=== PATIENT | female | born 1970 | race Caucasian/White ===

== ENCOUNTER → 2017-06-08 | Outpatient (CLI) | payer OTHER ==
[2014-04-07 10:58] VITALS: BP 125/66
[~2017-06-08] MED LIST: NO HOME MEDICATIONS
--- NOTE | 2017-06-08 12:28 | KCIC ---
PELVIS W/TV History: Pelvic pressure Comparison: None available at this time Findings: Multiple transabdominal sonographic images of the pelvis are submitted. Pelvic structures are poorly visualized. Transvaginal ultrasound: Multiple transvaginal sonographic images of the pelvis are submitted. There is a small quantity of fluid in the cervical canal. There are nabothian cysts. Uterus measured 10.6 x 5.9 x 5.8 cm. There is a mass of the anterior uterus near the fundus up to 3.4 x 3.3 x 4.2 cm, partially obscures the endometrium. Endometrium is estimated at 0.6 to 0.7 cm in thickness. Right ovary measured 4.1 x 2.1 x 3.9 cm, normal low resistance vascularity. There is a hypoechoic lesion of the right ovary up to 2.2 x 2.3 x 2.3 cm. Left ovary measured 2.7 x 1.5 x 2.7 cm, normal low resistance vascularity. Impression: 1. There is anterior uterine mass near the fundus up to 4.2 cm greatest dimension, more commonly due to a fibroid than more aggressive mass. Mass partially obscures endometrium. 2. There is right ovarian cyst up to 2.3 cm. Electronically signed by: Lucas Mcwilliams MD (06/08/2017 12:25 PM) [facility]-KCIC[facility]
--- NOTE | 2017-06-08 17:54 | RAD ---
DATE: 06/08/2017 EXAM: MAMMO JOSE ANTONIO SCREENING BILATERAL HISTORY: Routine screening COMPARISON: 12/11/2013 The breast parenchyma shows scattered fibroglandular densities. Breast parenchyma level B. FINDINGS: 2-D and 3-D tomosynthesis imaging was performed in CC and MLO projections. No new or enlarging breast densities are seen. No suspicious microcalcifications are evident IMPRESSION: Stable mammograms without evidence of malignancy. BI-RADS CATEGORY: 1 NEGATIVE RECOMMENDED FOLLOW-UP: 12M 12 MONTH FOLLOW-UP PQRS compliance statement: Patient information was entered into a reminder system with a target due date for the next mammogram. Mammography is a sensitive method for finding small breast cancers, but it does not detect them all and is not a substitute for careful clinical examination. A negative mammogram does not negate a clinically suspicious finding and should not result in delay in biopsying a clinically suspicious abnormality. "Our facility is accredited by the [employer] Mammography Program."
== END | disposition home or self-care (01) ==
LOC: KCIC US 08:29
PROVIDERS: ATTEND Nurse Practitioner Family
DX: Z12.31 Encounter for screening mammogram for malignant neoplasm of breast (principal); N83.201 Unspecified ovarian cyst, right side; N88.8 Other specified noninflammatory disorders of cervix uteri
CPT/HCPCS: 76830; 76856; 77063; G0202; 77067

== ENCOUNTER → 2017-06-11 | Outpatient (CLI) | payer OTHER ==
[2014-04-07 10:58] VITALS: BP 125/66
[2017-06-11 08:25] LABS: BASO # 0.1 x10^3/uL (0.0-0.2); BASO % 1 % (0-3); EOS % 4 % (0-3); HEMATOCRIT 42.3 % (36.0-47.0); HEMOGLOBIN 14.6 g/dL (12.0-15.5); LYMPH % 28 % (24-48); MEAN CORPUSCULAR HEMOGLOBIN 30 pg (25-35); MEAN CORPUSCULAR HGB CONC 34 g/dL (31-37); MEAN CORPUSCULAR VOLUME 86 fL (79-100); MONO % 8 % (0-9); NEUT % 59 % (31-73); PLATELET COUNT 220 x10^3/uL (140-400); RED BLOOD COUNT 4.92 x10^6/uL (3.50-5.40); RED CELL DISTRIBUTION WIDTH 14.3 % (11.5-14.5); WHITE BLOOD COUNT 6.9 x10^3/uL (4.0-11.0)
[2017-06-11 08:58] LABS: ALBUMIN 3.5 g/dL (3.4-5.0); CALCIUM 8.7 mg/dL (8.5-10.1); CREATININE 0.9 mg/dL (0.6-1.0); GFR 66.8; POTASSIUM 3.9 mmol/L (3.5-5.1); TOTAL BILIRUBIN 0.4 mg/dL (0.2-1.0); TOTAL PROTEIN 7.1 g/dL (6.4-8.2)
[2017-06-11 09:00] LABS: CHOLESTEROL/HDL RATIO 4.2
== END | disposition home or self-care (01) ==
LOC: LAB 07:55
PROVIDERS: ATTEND Nurse Practitioner Family
DX: Z01.419 Encounter for gynecological examination (general) (routine) without abnormal findings (principal)
CPT/HCPCS: 36415; 80053; 80061; 84436; 84443; 85025

== ENCOUNTER → 2017-06-28 | Outpatient (CLI) | payer OTHER ==
[2014-04-07 10:58] VITALS: BP 125/66
--- NOTE | 2017-06-28 17:05 | KCIC ---
INDICATION: Neck pain. Numbness in thighs and abdomen. Right radiculopathy. Symptoms for 2 months. TECHNIQUE: Sagittal T1, sagittal T2, sagittal STIR, axial T2, and axial T2 gradient sequences are provided. No comparison is available. FINDINGS: There is straightening of cervical lordosis. There is no subluxation. There is no marrow edema or worrisome marrow lesion. There is no cord signal abnormality. The cervicomedullary junction is unremarkable. Degenerative findings by individual level are as follows: C2-C3: There is no canal or foraminal compromise. C3-C4: There is no canal or foraminal compromise. C4-C5: There is no canal or foraminal compromise. C5-C6: There is a minimal disc osteophyte complex without canal or foraminal compromise. C6-C7: There is a mild disc osteophyte complex and minimal uncinate process spurring. There is no canal stenosis or foraminal narrowing. C7-T1: There is no canal or foraminal compromise. IMPRESSION: Mild degenerative disc disease in the cervical spine. This does not result in any high-grade canal or foraminal compromise at any level. Electronically signed by: Aleksandar Mcdonough MD (06/28/2017 5:01 PM) [facility]-KCIC[facility]
== END | disposition home or self-care (01) ==
LOC: KCIC MRI 15:19
PROVIDERS: ATTEND Nurse Practitioner Family
DX: M50.30 Other cervical disc degeneration, unspecified cervical region (principal); R20.0 Anesthesia of skin
CPT/HCPCS: 72141

== ENCOUNTER 2017-09-13 07:34 | Observation (INO) | payer OTHER ==
[~2017-09-13] VITALS: Ht 170.2 cm; Wt 135.2 kg
[2017-09-13] VITALS (7 sets, daily range): BP systolic 126–145; BP diastolic 57–80
[~2017-09-13 07:34] MED LIST changes: +BUPR300T3 PO; +HYDROmorphone 2 MG/ML VIAL IV PRN; +IV RINGERS,LACTATED 1000ML 1,000 ML IV SCH; +LEVO75TA5 PO; +LIDOCAINE 1% PF 2 ML VIAL. ID PRN; +MORPHINE SULFATE 2 MG/ML DISP.SYRIN. IV PRN; +ONDANSETRON PF 4 MG/2 ML VIAL. IV PRN; +PROCHLORPERAZINE 10 MG/2 ML VIAL. IV PRN; +fentaNYL PF VIAL 100 MCG/2 ML VIAL IV PRN
[2017-09-13] MEDS ORDERED: LIDOCAINE 1%/EPI 1:100,000 20 ML VIAL. ONE ×2 (07:41→07:43)
[2017-09-13] MEDS ORDERED: ESTROGENS, CONJ VAGINAL CREAM 30GM TUBE. ONE (07:42)
[2017-09-13] MEDS ORDERED: SURGICEL HEMOSTAT 4X8 EACH. ONE (07:43)
[2017-09-13] MEDS ORDERED: DEXAMETHASONE SOD PHOS 20 MG/5 ML VIAL. ONE (08:42)
[2017-09-13] MEDS ORDERED: PROPOFOL 20 ML IV ONE (08:42)
[2017-09-13] MEDS ORDERED: ONDANSETRON PF 4 MG/2 ML VIAL. ONE (08:42)
[2017-09-13] MEDS ORDERED: LIDOCAINE 2% PF Vial for OR 5 ML VIAL. ONE (08:42)
[2017-09-13] MEDS ORDERED: ROCURONIUM 50 MG/5 ML VIAL. ONE ×2 (08:43→11:04)
[2017-09-13] MEDS ORDERED: MIDAZOLAM HCL/PF 2 MG/2 ML VIAL. ONE (08:43)
[2017-09-13] MEDS ORDERED: fentaNYL PF VIAL 100 MCG/2 ML VIAL ONE (08:43)
[2017-09-13 09:22] LABS: NEG OBC UR NEG; POS OBC UR POS
[2017-09-13 09:33] LABS: BASO % 1 % (0-3); EOS % 3 % (0-3); HEMATOCRIT 43.7 % (36.0-47.0); HEMOGLOBIN 14.2 g/dL (12.0-15.5); LYMPH # 1.5 x10^3/uL (1.0-4.8); LYMPH % 26 % (24-48); MEAN CORPUSCULAR HEMOGLOBIN 28 pg (25-35); MEAN CORPUSCULAR HGB CONC 33 g/dL (31-37); MEAN CORPUSCULAR VOLUME 87 fL (79-100); MONO % 8 % (0-9); NEUT % 63 % (31-73); PLATELET COUNT 226 x10^3/uL (140-400); RED CELL DISTRIBUTION WIDTH 14.5 % (11.5-14.5); WHITE BLOOD COUNT 5.8 x10^3/uL (4.0-11.0)
[2017-09-13] MEDS ORDERED: BUPIVACAINE-EPI 0.25%-1:200000 MPF 30 ML VIAL. INJ ONE (10:05)
[2017-09-13] MEDS ORDERED: DESFLURANE 61 TO 120 MINUTES IH ONE (10:33)
[2017-09-13] MEDS ORDERED: GLYCOPYRROLATE 1 MG/5 ML VIAL. ONE (10:49)
[2017-09-13] MEDS ORDERED: KETOROLAC 30 MG/ML INJ FOR OR. INJ ONE (11:18)
[2017-09-13] MEDS ORDERED: DESFLURANE > 120 MINUTES IH ONE (11:53)
--- NOTE | 2017-09-13 12:04 | PDOC ---
BRIEF OPERATIVE NOTE Date: Sep 13, 2017 Pre-Op Diagnosis 1. AUB 2. Fibroids 3. ROV Cyst 4. Cystocele Post-Op Diagnosis SAme + VERONA Cyst Procedure Performed LAVH, BSO and Anterior Repair Surgeon Dr. Serrano Anesthesia Type: General Blood Loss 550 ml Specimens Obtained uterus, cervix, kb. fallopian tubes and ovaries Findings enlarged, fibroid uterus; kb. ovarian cysts; nml fallopian tubes kb. Complications none Operative Note see dictation ELBA SERRANO Jr, MD Sep 13, 2017 12:04
[2017-09-13] MEDS ORDERED: ZOLPIDEM 5 MG TABLET. PO PRN (12:15)
[2017-09-13] MEDS ORDERED: SIMETHICONE 80 MG TAB.CHEW PO PRN (12:15)
[2017-09-13] MEDS ORDERED: 0.9 % SODIUM CHLORIDE 10 ML DISP.SYRIN. IV PRN (12:15)
[2017-09-13] MEDS ORDERED: diphenhydrAMINE HCL 25 MG CAPSULE PO PRN (12:15)
[2017-09-13] MEDS ORDERED: KETOROLAC 30 MG/ML INJ. IV PRN (12:15)
[2017-09-13] MEDS ORDERED: diphenhydrAMINE 50 MG/ML VIAL IV PRN (12:15)
[2017-09-13] MEDS ORDERED: ONDANSETRON PF 4 MG/2 ML VIAL. IV PRN (12:15)
[2017-09-13] MEDS ORDERED: DEXTROSE 50% 25 GM / 50ML DISP.SYRIN. IV PRN (12:15)
[2017-09-13] MEDS ORDERED: CALCIUM CARBONATE 500 MG TAB.CHEW PO PRN (12:15)
[2017-09-13] MEDS ORDERED: PROCHLORPERAZINE 10 MG/2 ML VIAL. IV PRN (12:15)
[2017-09-13] MEDS: fentaNYL PF VIAL 100 MCG/2 ML VIAL IV PRN ×2 (12:24→12:42)
[2017-09-13] MEDS ORDERED: SCOPOLAMINE 1.5MG PATCH. TD PRN (12:30)
--- NOTE | 2017-09-13 13:16 | OP ---
DATE OF SURGERY: PREOPERATIVE DIAGNOSES: 1. Abnormal uterine bleeding. 2. Fibroids. 3. Right ovarian cyst. 4. Cystocele. POSTOPERATIVE DIAGNOSES: 1. Abnormal uterine bleeding. 2. Fibroids. 3. Right ovarian cyst. 4. Cystocele. 5. Left ovarian cyst. PROCEDURE: 1. LAVH, BSO. 2. Anterior repair. SURGEON: Elba Serrano MD ANESTHESIA: GETA. ESTIMATED BLOOD LOSS: 550 mL. COMPLICATIONS: None. FINDINGS: Enlarged fibroid uterus, bilateral ovarian cysts. Normal fallopian tubes bilaterally. SUMMARY: A 47-year-old female with abnormal uterine bleeding, fibroid uterus. The patient has a history of endometrial ablation, persistent right ovarian cyst. The patient was counseled on LAVH-RSO, possible LSO as well as anterior repair, risks, benefits and expectations and voiced a clear understanding to proceed. DESCRIPTION OF PROCEDURE: The patient was taken to the surgery suite and placed in dorsal lithotomy position. She was prepped with Betadine solution for vaginal prep and ChloraPrep for abdominal prep. After adequate anesthesia, bivalve speculum was placed vaginally. Anterior lip of the cervix grasped with a single tooth tenaculum. The Infusionsoft uterine manipulator was then placed. The bivalve speculum was removed. Attention was now placed on abdomen. Small transverse skin incision was made just below the umbilicus with a scalpel. The Veress needle was then placed through the infraumbilical incision site. The abdomen was allowed to insufflate up to 1-1/2 liters CO2 gas. The Veress needle was then removed. A 5 mm trocar was placed. Scope was positioned. The uterus appeared enlarged with multiple fibroids. Bilateral ovaries were visualized and both had cysts up to 3.5 cm size. Fallopian tubes appeared normal bilaterally. Two additional incisions made in the left lower quadrant with a scalpel in which 5 mm trocars were placed with aid of graspers and EnSeal device. The right round ligament was coagulated and dissected. The right infundibulopelvic ligament was coagulated and dissected. The right broad ligament was coagulated and dissected down to the uterine artery. Same process took place with the left adnexa. Due to some adhesions of the lower uterine segment to the bladder area, we were unable to create a bladder flap laparoscopically. We then proceeded vaginally. Weighted speculum and curved Mikal placed vaginally, the single tooth tenaculum and Valtchev uterine manipulator were removed. The double tooth tenaculum placed on the anterior-and posterior lip of the cervix. 1% lidocaine with epinephrine was injected circumferentially. Bovie cautery was utilized to circumscribe the cervix. The vaginal mucosa was dissected away from the lower uterine segment using blunt dissection with a moist Ray-Yuval. The parametrial tissue was clamped bilaterally, cut and suture ligated with 2-0 Vicryl suture. We then entered the posterior cul-de-sac with sharp dissection with curved Ivan scissors. The uterosacral ligaments were clamped bilaterally, cut and suture ligated. Cardinal ligaments were clamped bilaterally, cut and suture ligated. We then entered the anterior cul-de-sac bluntly. Two additional pedicles were taken just adjacent to the uterus bilaterally, cut and suture ligated with 2-0 Vicryl sutures. The uterus was then retroverted. There was a peritoneal adhesion that was clamped, cut and suture ligated. The cervix, uterus, bilateral fallopian tubes and ovaries were then removed in their entirety. A modified Avila culdoplasty was performed incorporating the uterosacral ligaments bilaterally using 0 Vicryl suture. The remainder of the vaginal cuff was reapproximated using 2-0 Vicryl suture in a [id number] manner. I then proceeded with anterior repair, in which an Allis clamp was placed 2 cm below the urethral orifice on the anterior vaginal wall mucosa. A second Allis clamp was placed 3 cm below the first Allis clamp at the midline of the anterior vaginal mucosa. 1% lidocaine with epinephrine was injected between the 2 Allis clamps. Scalpel was utilized to make an incision between the 2 Allis clamps. The vaginal mucosa was dissected away from the pubovesical fascia using sharp dissection with Metzenbaum scissors. The pubovesical fascia was reapproximated using 2-0 Vicryl suture in an interrupted fashion. The excess anterior vaginal wall mucosa was excised using Metzenbaum scissors. The remaining anterior vaginal wall mucosa was reapproximated using 2-0 Vicryl suture in a [id number] manner. A Premarin soaked vaginal packing was then placed. Attention was once again placed on abdomen. The abdomen was allowed to insufflate up to 1-1/2 liters of CO2 gas. The scope was positioned. The posterior cul-de-sac was irrigated of clot and debris. The pedicles were all hemostatic. A small amount of normal saline was left in posterior cul-de-sac. The trocars were then removed under direct visualization. The abdomen was allowed to deflate as much as possible along with mechanical manipulation. The three skin incisions were reapproximated using 4-0 Vicryl suture in subcuticular manner. 0.25% Marcaine with epinephrine was injected at each incision site. The patient tolerated the procedure well and was taken to recovery room in stable condition. Sponge and needle count correct x 3. ELBA SERRANO MD DR: KEVIN/doug JOB#: [id number] / [id number]
[2017-09-13] MEDS ORDERED: RACEPINEPHRINE 2.25% 0.5 ML NEBU. NEB PRN (13:30)
[2017-09-13] MEDS ORDERED: MIDAZOLAM HCL/PF 2 MG/2 ML VIAL. IV PRN (13:30)
[2017-09-13] MEDS: GABAPENTIN 300 MG CAPSULE. PO SCH ×2 (14:00→22:00)
[2017-09-13] MEDS ORDERED: PHENOL ORAL SPRAY 177ML BOTTLE. PO PRN (19:30)
[2017-09-13] MEDS: oxyCODONE/APAP 5/325 1 TAB TABLET PO PRN (20:10)
[2017-09-13] MEDS ORDERED: DOCUSATE SODIUM 100 MG CAPSULE. PO PRN (21:45)
[2017-09-14] MEDS: oxyCODONE/APAP 5/325 1 TAB TABLET PO PRN ×3 (00:10→06:22)
[2017-09-14 03:39] VITALS: BP 123/54
[2017-09-14] MEDS: GABAPENTIN 300 MG CAPSULE. PO SCH (04:41)
[2017-09-14 05:14] VITALS: BP 124/58
[2017-09-14 05:50] LABS: BASO % 0 % (0-3); EOS % 0 % (0-3); HEMATOCRIT 33.6 % (36.0-47.0); HEMOGLOBIN 11.2 g/dL (12.0-15.5); LYMPH # 1.1 x10^3/uL (1.0-4.8); LYMPH % 9 % (24-48); MEAN CORPUSCULAR HEMOGLOBIN 29 pg (25-35); MEAN CORPUSCULAR HGB CONC 33 g/dL (31-37); MEAN CORPUSCULAR VOLUME 88 fL (79-100); MONO % 7 % (0-9); NEUT % 84 % (31-73); PLATELET COUNT 214 x10^3/uL (140-400); RED BLOOD COUNT 3.84 x10^6/uL (3.50-5.40); RED CELL DISTRIBUTION WIDTH 14.5 % (11.5-14.5); WHITE BLOOD COUNT 12.5 x10^3/uL (4.0-11.0)
[2017-09-14 07:00] VITALS: BP 105/54
[2017-09-14 11:00] VITALS: BP 105/51
--- NOTE | 2017-09-14 11:51 | PDOC ---
SURGICAL PROGRESS NOTE Subjective Pt. feeling better. She is tolerating regular diet, ambulating in hallways and voiding without difficulty. Vital Signs Vital Signs Date Time Temp Pulse Resp B/P (MAP) Pulse Ox O2 Delivery O2 Flow Rate FiO2 09/14/17 07:46 Room Air 09/14/17 07:00 97.9 83 20 105/54 (71) 98 97.9 09/14/17 01:10 2.0 I&O Intake and Output 09/14/17 07:00 Intake Total 3640 ml Output Total 3730 ml Balance -90 ml Intake Oral 1090 ml IV Total 2550 ml Output Urine Total 3180 ml Estimated Blood Loss 550 ml PATIENT HAS A VELASQUEZ: No General: Alert, Oriented X3, Cooperative HEENT: Atraumatic Lungs: Clear to auscultation Heart: Regular rate Abdomen: Normal bowel sounds, Soft, No masses Psych/Mental Status: Mental status NL Labs Laboratory Tests Test 09/13/17 08:15 09/13/17 17:13 09/14/17 04:50 White Blood Count 5.8 x10^3/uL (4.0-11.0) 12.5 x10^3/uL (4.0-11.0) Red Blood Count 5.00 x10^6/uL (3.50-5.40) 3.84 x10^6/uL (3.50-5.40) Hemoglobin 14.2 g/dL (12.0-15.5) 12.6 g/dL (12.0-15.5) 11.2 g/dL (12.0-15.5) Hematocrit 43.7 % (36.0-47.0) 37.6 % (36.0-47.0) 33.6 % (36.0-47.0) Mean Corpuscular Volume 87 fL (79-100) 88 fL (79-100) Mean Corpuscular Hemoglobin 28 pg (25-35) 29 pg (25-35) Mean Corpuscular Hemoglobin Concent 33 g/dL (31-37) 33 g/dL (31-37) Red Cell Distribution Width 14.5 % (11.5-14.5) 14.5 % (11.5-14.5) Platelet Count 226 x10^3/uL (140-400) 214 x10^3/uL (140-400) Neutrophils (%) (Auto) 63 % (31-73) 84 % (31-73) Lymphocytes (%) (Auto) 26 % (24-48) 9 % (24-48) Monocytes (%) (Auto) 8 % (0-9) 7 % (0-9) Eosinophils (%) (Auto) 3 % (0-3) 0 % (0-3) Basophils (%) (Auto) 1 % (0-3) 0 % (0-3) Neutrophils # (Auto) 3.6 x10^3uL (1.8-7.7) 10.5 x10^3uL (1.8-7.7) Lymphocytes # (Auto) 1.5 x10^3/uL (1.0-4.8) 1.1 x10^3/uL (1.0-4.8) Monocytes # (Auto) 0.5 x10^3/uL (0.0-1.1) 0.9 x10^3/uL (0.0-1.1) Eosinophils # (Auto) 0.2 x10^3/uL (0.0-0.7) 0.0 x10^3/uL (0.0-0.7) Basophils # (Auto) 0.0 x10^3/uL (0.0-0.2) 0.0 x10^3/uL (0.0-0.2) Urine Test Negative (NEG) Laboratory Tests Test 09/13/17 17:13 09/14/17 04:50 Hemoglobin 12.6 g/dL (12.0-15.5) 11.2 g/dL (12.0-15.5) Hematocrit 37.6 % (36.0-47.0) 33.6 % (36.0-47.0) White Blood Count 12.5 x10^3/uL (4.0-11.0) Red Blood Count 3.84 x10^6/uL (3.50-5.40) Mean Corpuscular Volume 88 fL (79-100) Mean Corpuscular Hemoglobin 29 pg (25-35) Mean Corpuscular Hemoglobin Concent 33 g/dL (31-37) Red Cell Distribution Width 14.5 % (11.5-14.5) Platelet Count 214 x10^3/uL (140-400) Neutrophils (%) (Auto) 84 % (31-73) Lymphocytes (%) (Auto) 9 % (24-48) Monocytes (%) (Auto) 7 % (0-9) Eosinophils (%) (Auto) 0 % (0-3) Basophils (%) (Auto) 0 % (0-3) Neutrophils # (Auto) 10.5 x10^3uL (1.8-7.7) Lymphocytes # (Auto) 1.1 x10^3/uL (1.0-4.8) Monocytes # (Auto) 0.9 x10^3/uL (0.0-1.1) Eosinophils # (Auto) 0.0 x10^3/uL (0.0-0.7) Basophils # (Auto) 0.0 x10^3/uL (0.0-0.2) Assessment/Plan POD#1 s/p LAVH, BSO and Anterior Repair P: d/c home. Problems: ELBA DONALD Jr, MD Sep 14, 2017 11:51
--- NOTE | 2017-09-14 11:52 | DISCH ---
DISCHARGE INSTRUCTIONS Condition on Discharge Condition on Discharge: Stable Activity After Discharge Activity Instructions for Disc: Activity as tolerated Lifting Instructions after Dis: No heavy lifting Driving Instructions after Dis: Do not drive today Diet after Discharge Diet Texture: Regular Contacting the DRTabitha after DC Call your doctor for: Concerns you may have Follow-Up Follow up with: Dr. Serrano in 3 weeks. ELBA SERRANO Jr, MD Sep 14, 2017 11:52
[2017-09-14] MEDS ORDERED: DOCU-109 PO (11:53)
[2017-09-14] MEDS ORDERED: OXYC-323 PO (11:53)
[2017-09-14] MEDS ORDERED: IBUP-1060 PO (11:53)
--- NOTE | 2017-09-17 09:47 | PATHOLOGY ---
PATHOLOGY REPORT * * * * * * * * FINAL DIAGNOSIS: Uterus and attached bilateral fallopian tubes and ovaries, laparoscopic assisted vaginal hysterectomy with bilateral salpingo-oophorectomy: - Leiomyomas (4), uterine corpus, the largest measuring 2.6 cm in greatest dimension (uterine weight 133 grams). - Mild chronic cervicitis. - Nabothian cysts, cervix. - Slightly disordered proliferative endometrium. - Congestion of bilateral fallopian tubes. - Partially luteinized follicular cyst of left ovary. - Small serous inclusion cysts of bilateral ovaries. COMMENT: There is no evidence of malignancy. (JPM:rltri; 09/14/2017) REPORT ELECTRONICALLY SIGNED BY: Jaylen Ceballos M.D. DATE/TIME: 09/17/2017 09:47 * * * * * * * * GROSS PATHOLOGY: Received in formalin labeled "Claude Vizcaino, uterus, cervix, bilateral ovaries and tubes" is a hysterectomy specimen with attached fallopian tubes and ovaries. The uterus weighs 133 g and measures 10.1 cm from fundus to cervix, 6.1 cm from cornu to cornu, and 5.0 cm from anterior to posterior. The serosa is pink-laureano and smooth with multiple minute roughened adhesions on the anterior surface measuring from 0.1-0.2 cm in greatest dimension, and covering a 1.0 x 0.5 cm area. The cervical os is slitlike and measures 1.9 cm. The ectocervix is pink-laureano and slightly ragged (possible surgical artifact). The cervix is probe patent and the uterus is opened to reveal a 4.0 x 1.0 cm endometrial cavity and a 3.0 x 0.9 cm endocervical canal. The average endometrial thickness measures 0.1 cm and the average myometrial thickness measures 2.1 cm. Four leiomyomata are identified within the myometrium ranging from 0.7-2.6 cm in greatest dimension. No hemorrhage or necrosis is identified. The attached fimbriated fallopian tubes are pink laureano and smooth, and serially sectioned to reveal a pinpoint lumen. The right fallopian tube measures 7.6 cm in length and 0.6 cm in diameter. The left fallopian tube measures 5.2 cm in length and 0.6 cm in diameter. The right ovary weighs 6 g and measures 3.5 x 2.2 x 1.5 cm. The external surface is laureano-white and smooth and the ovary is serially sectioned to reveal multiple corpora lutea ranging from 0.3-0.5 cm in greatest dimension. The left ovary weighs 11 g and measures 3.5 x 3.0 x 2.2 cm. The external surface is laureano-white and cerebriform, and the ovary is sectioned to reveal a thin walled simple cyst measuring 2.2 x 2.2 x 2.0 cm. No papillary excrescences are identified. Action Finisher sections of the specimen are submitted as follows: A1 12:00 cervix A2 6:00 cervix A3 full-thickness anterior endomyometrium A4 full-thickness posterior endomyometrium A5 assistance representative right fallopian tube A6 assistance representative left fallopian tube A7 assistance representative right ovary A8 assistance representative left ovary including cyst wall A9 assistance representative leiomyomata [place] [place]13[place] INITIAL CPT CODE(S): A; 07871 Professional services performed [place] [facility] [place] [address] Technical services performed by [facility] at [address] [place] [address], [facility] [address], [place] [address]. SPECIMEN(S) RECEIVED: A.Uterus, cervix, bilateral tubes and ovaries CLINICAL HISTORY: Fibroids, abnormal uterine bleeding, cystocele, right ovarian cyst PATIENT: CLAUDE VIZCAINO Sam /AGE: 806/09/1970 (Age: 47) PATIENT #: [id number] ALT CASE #: SPECIMEN COLLECTION DATE: 09/13/2017 SPECIMEN RECEIVED DATE: 09/13/2017 [facility] - [address] [place] [address] - PHONE: [phone] * * * END OF REPORT * * *
== END 2017-09-14 14:01 | disposition home or self-care (01) ==
LOC: SURG 07:34 → 3 NORTH 12:04 → 2 SOUTH 18:36
PROVIDERS: ADMIT Obstetrics & Gynecology; ATTEND Obstetrics & Gynecology
DX: N93.9 Abnormal uterine and vaginal bleeding, unspecified (principal); D25.9 Leiomyoma of uterus, unspecified; N83.201 Unspecified ovarian cyst, right side; N83.202 Unspecified ovarian cyst, left side; N81.10 Cystocele, unspecified; K66.0 Peritoneal adhesions (postprocedural) (postinfection)
CPT/HCPCS: 36415; 57240; 58552; 81025; 85014; 85018; 85025; 86850; 86900; 86901; 86920; 94640; 96374; 96375; G0378; G0379; J0690; J0780; J1100; J1885; J2060; J2250; J2405; J2704; J3010; J3490; A4215; J7030; J7120; J2001

== ENCOUNTER 2017-09-28 11:46 | Inpatient (IN) | payer OTHER ==
[~2017-09-28] VITALS: Ht 170.2 cm; Wt 127.9 kg
[~2017-09-28 11:46] MED LIST changes: +DOCU-109 PO; -HYDROmorphone 2 MG/ML VIAL IV PRN; +IBUP-1060 PO; -IV RINGERS,LACTATED 1000ML 1,000 ML IV SCH; -LIDOCAINE 1% PF 2 ML VIAL. ID PRN; -MORPHINE SULFATE 2 MG/ML DISP.SYRIN. IV PRN; -ONDANSETRON PF 4 MG/2 ML VIAL. IV PRN; +OXYC-323 PO; -PROCHLORPERAZINE 10 MG/2 ML VIAL. IV PRN; -fentaNYL PF VIAL 100 MCG/2 ML VIAL IV PRN
[2017-09-28] MEDS ORDERED: IV NORMAL SALINE 1000ML BAG 1,000 ML IV SCH (12:36)
[2017-09-28] MEDS ORDERED: CONTRAST GIVEN MC PRN (13:00)
[2017-09-28] MEDS ORDERED: IOHEXOL 300 MG/ML 100ML VIAL. IV ONE (13:00)
--- NOTE | 2017-09-28 13:05 | PHYS DOC ---
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 She had hysterectomy 2 weeks ago. She's been trying to hold off on taking her narcotic pain medicines. She's been having a sensation of her "insides ripping out" when she has BM, she has pain with bowel movements which is in the middle pelvic and upper epigastric area. She was advised by her family doctor to come in the emergency department last Sunday however thought she would try and treat it at home but it has not been working. She's been taking Colace MiraLAX and Motrin. She takes one Percocet in the morning and 1 at night trying to limit those. She' s also been having some irritation with urination and a burning sensation. Not had any fevers. She has not follow-up postop status post laparoscopic hysterectomy. Review of Systems Review of Systems Constitutional: Denies fever or chills Eyes: Denies change in visual acuity, redness, or eye pain HENT: Denies nasal congestion or sore throat Respiratory: Denies cough or shortness of breath Cardiovascular: No additional information not addressed in HPI GI: HPI : HPI Musculoskeletal: Denies back pain or joint pain Integument: Denies rash or skin lesions Neurologic: Denies headache, focal weakness or sensory changes Endocrine: Denies polyuria or polydipsia All other systems were reviewed and found to be within normal limits, except as documented in this note. Current Medications Current Medications Current Medications Medications (Trade) Dose Ordered Sig/Neel Start Time Stop Time Status Last Admin Dose Admin Info (Do NOT chart on this entry -- for MONITORING) 1 each PRN DAILY PRN 09/28/17 13:00 09/30/17 12:59 Iohexol (Omnipaque 300 Mg/ml) 75 ml 1X ONCE 09/28/17 13:00 09/28/17 13:01 DC 09/28/17 13:46 75 ML Ketorolac Tromethamine (Toradol) 30 mg 1X ONCE 09/28/17 15:15 09/28/17 15:16 DC 09/28/17 15:23 30 MG Piperacillin Sod/ Tazobactam Sod (Zosyn) 4.5 gm 1X ONCE 09/28/17 15:15 09/28/17 15:16 DC 09/28/17 15:52 4.5 GM Piperacillin Sod/ Tazobactam Sod 4.5 gm/Dextrose 100 ml @ 200 mls/hr 1X ONCE 09/28/17 15:15 09/28/17 15:15 DC Sodium Chloride 1,000 ml @ 1,000 mls/hr Q1H 09/28/17 12:36 09/28/17 13:35 DC 09/28/17 12:36 1,000 MLS/HR Allergies Allergies Allergies Coded Allergies Type Severity Reaction Last Updated Verified No Known Drug Allergies 09/13/17 No Physical Exam Physical Exam Constitutional: Well developed, well nourished, no acute distress, non-toxic appearance. Looks younger than stated age. HENT: Normocephalic, atraumatic, bilateral external ears normal, oropharynx moist, no oral exudates, nose normal. Eyes: PERRLA, EOMI, conjunctiva normal, no discharge. Neck: Normal range of motion. Cardiovascular:Heart rate regular rhythm, no murmur Lungs & Thorax: Bilateral breath sounds clear to auscultation Abdomen: Bowel sounds normal, soft, , no masses. Skin: Warm, dry, no erythema, no rash. Back: No tenderness, no CVA tenderness. Extremities: No tenderness, no cyanosis, no clubbing, ROM intact, no edema. Neurologic: Alert and oriented X 3, normal motor function, normal sensory function, no focal deficits noted. Psychologic: Affect normal, judgement normal, mood normal. Current Patient Data Vital Signs Vital Signs Date Time Temp Pulse Resp B/P (MAP) Pulse Ox O2 Delivery O2 Flow Rate FiO2 09/28/17 15:53 79 18 136/60 (85) 100 Room Air 09/28/17 12:20 98.5 98.5 Lab Values Laboratory Tests Test 09/28/17 13:21 09/28/17 13:25 Urine Collection Type Unknown Urine Color Yellow Urine Clarity Clear Urine pH 6.0 Urine Specific [place] 1.010 Urine Protein Negative mg/dL (NEG-TRACE) Urine Glucose (UA) Negative mg/dL (NEG) Urine Ketones (Stick) Negative mg/dL (NEG) Urine Blood Negative (NEG) Urine Nitrite Negative (NEG) Urine Bilirubin Negative (NEG) Urine Urobilinogen Dipstick 0.2 mg/dL (0.2 mg/dL) Urine Leukocyte Esterase Trace (NEG) Urine RBC 1-2 /HPF (0-2) Urine WBC 5-10 /HPF (0-4) Urine Squamous Epithelial Cells Few /LPF Urine Bacteria Few /HPF (0-FEW) Urine Mucus Slight /LPF White Blood Count 8.9 x10^3/uL (4.0-11.0) Red Blood Count 4.28 x10^6/uL (3.50-5.40) Hemoglobin 12.2 g/dL (12.0-15.5) Hematocrit 37.2 % (36.0-47.0) Mean Corpuscular Volume 87 fL (79-100) Mean Corpuscular Hemoglobin 29 pg (25-35) Mean Corpuscular Hemoglobin Concent 33 g/dL (31-37) Red Cell Distribution Width 14.2 % (11.5-14.5) Platelet Count 276 x10^3/uL (140-400) Neutrophils (%) (Auto) 76 % (31-73) H Lymphocytes (%) (Auto) 14 % (24-48) L Monocytes (%) (Auto) 7 % (0-9) Eosinophils (%) (Auto) 2 % (0-3) Basophils (%) (Auto) 1 % (0-3) Neutrophils # (Auto) 6.8 x10^3uL (1.8-7.7) Lymphocytes # (Auto) 1.3 x10^3/uL (1.0-4.8) Monocytes # (Auto) 0.6 x10^3/uL (0.0-1.1) Eosinophils # (Auto) 0.1 x10^3/uL (0.0-0.7) Basophils # (Auto) 0.1 x10^3/uL (0.0-0.2) Sodium Level 138 mmol/L (136-145) Potassium Level 4.5 mmol/L (3.5-5.1) Chloride Level 102 mmol/L (98-107) Carbon Dioxide Level 28 mmol/L (21-32) Anion Gap 8 (6-14) Blood Urea Nitrogen 12 mg/dL (7-20) Creatinine 1.0 mg/dL (0.6-1.0) Estimated GFR (Cockcroft-Gault) 59.2 BUN/Creatinine Ratio 12 (6-20) Glucose Level 100 mg/dL (70-99) H Calcium Level 9.0 mg/dL (8.5-10.1) Total Bilirubin 0.4 mg/dL (0.2-1.0) Aspartate Amino Transferase (AST) 15 U/L (15-37) Alanine Aminotransferase (ALT) 22 U/L (14-59) Alkaline Phosphatase 109 U/L (46-116) Total Protein 7.3 g/dL (6.4-8.2) Albumin 3.4 g/dL (3.4-5.0) Albumin/Globulin Ratio 0.9 (1.0-1.7) L Lipase 64 U/L (73-393) L Laboratory Tests 09/28/17 13:25 Laboratory Tests 09/28/17 13:25 EKG EKG [] Radiology/Procedures Radiology/Procedures []REASON: post op pain PROCEDURE: CT ABD PELV W/ IV CONTRST ONLY CT of the abdomen and pelvis with contrast, 09/28/2017: History: Post hysterectomy pain Multidetector CT imaging was performed following an IV bolus injection of iodinated contrast material. No oral contrast material was administered for this study. No hepatic abnormality is seen. The gallbladder is unremarkable. The pancreas shows no abnormality. The spleen is of normal size. The kidneys are unremarkable. The renal collecting systems and ureters are not dilated. The abdominal aorta is unremarkable. No abdominal or pelvic adenopathy is seen. The uterus is surgically absent. There is a small collection of fluid and gas in the pelvis at the midline in the region of the vaginal cuff. This demonstrates a slightly irregular medium density wall. It measures approximately 2.9 cm in greatest diameter. This abuts the posterior bladder wall, which appears to be mildly thickened. This process cannot be clearly from the left lateral wall of the rectosigmoid colon. Just inferior to this collection of fluid and gas there are additional gas collections which presumably lie within the vagina. The bowel loops are not dilated. The appendix is visualized and shows no abnormality. No free air or significant volume of free fluid is evident in the abdomen or pelvis. IMPRESSION: Small postoperative collection of gas and fluid at the level of the vaginal cuff raising the possibility of abscess. PQRS Compliance Statement: One or more of the following individualized dose reduction techniques were utilized for this examination: 1. Automated exposure control 2. Adjustment of the mA and/or kV according to patient size 3. Use of iterative reconstruction technique DICTATED and SIGNED BY: CARMEN ALTMAN MD DATE: 09/28/17 1431 CC: SANDRA NOLASCO MD; ARLEN SUTTON MD ~ Course & Med Decision Making Course & Med Decision Making Pertinent Labs and Imaging studies reviewed. (See chart for details) CT with possible small abcess versus infection. D/W Dr. Altman interventional radiology -- not large enough to consider IR drainage at this point. Logan dose with antibiotics and admit. . Will notify the hot stone setter for Dr. Pérez. Dr. Pérez is out to Dr. Ambrosio who will admit. Dx: post op infection; admittd in stable condition. Dragon Disclaimer Dragon Disclaimer This electronic medical record was generated, in whole or in part, using a voice recognition dictation system. Departure Departure Referrals: SANDRA NOLASCO MD (PCP) ARLEN SUTTON MD Sep 28, 2017 13:05
[2017-09-28 13:46] LABS: BILIRUBIN,URINE NEGATIVE (NEG); GLUCOSE,URINE NEGATIVE (NEG); NITRITE,URINE NEGATIVE (NEG); PROTEIN,URINE NEGATIVE (NEG-TRACE); UROBILINOGEN,URINE 0.2 mg/dL (0.2 mg/dL)
[2017-09-28 13:47] LABS: BASO # 0.1 x10^3/uL (0.0-0.2); BASO % 1 % (0-3); EOS % 2 % (0-3); HEMATOCRIT 37.2 % (36.0-47.0); HEMOGLOBIN 12.2 g/dL (12.0-15.5); LYMPH # 1.3 x10^3/uL (1.0-4.8); LYMPH % 14 % (24-48); MEAN CORPUSCULAR HEMOGLOBIN 29 pg (25-35); MEAN CORPUSCULAR HGB CONC 33 g/dL (31-37); MEAN CORPUSCULAR VOLUME 87 fL (79-100); MONO % 7 % (0-9); NEUT % 76 % (31-73); PLATELET COUNT 276 x10^3/uL (140-400); RED BLOOD COUNT 4.28 x10^6/uL (3.50-5.40); RED CELL DISTRIBUTION WIDTH 14.2 % (11.5-14.5); WHITE BLOOD COUNT 8.9 x10^3/uL (4.0-11.0)
[2017-09-28 13:59] LABS: BACTERIA,URINE FEW /HPF (0-FEW); SQUAMOUS EPITHELIAL CELL,UR FEW /LPF
[2017-09-28 13:59] LABS: GFR 59.2; POTASSIUM 4.5 mmol/L (3.5-5.1)
[2017-09-28 14:20] LABS: ALBUMIN 3.4 g/dL (3.4-5.0); ALBUMIN/GLOBULIN RATIO 0.9 (1.0-1.7); TOTAL BILIRUBIN 0.4 mg/dL (0.2-1.0); TOTAL PROTEIN 7.3 g/dL (6.4-8.2)
--- NOTE | 2017-09-28 14:52 | RAD ---
CT of the abdomen and pelvis with contrast, 09/28/2017: History: Post hysterectomy pain Multidetector CT imaging was performed following an IV bolus injection of iodinated contrast material. No oral contrast material was administered for this study. No hepatic abnormality is seen. The gallbladder is unremarkable. The pancreas shows no abnormality. The spleen is of normal size. The kidneys are unremarkable. The renal collecting systems and ureters are not dilated. The abdominal aorta is unremarkable. No abdominal or pelvic adenopathy is seen. The uterus is surgically absent. There is a small collection of fluid and gas in the pelvis at the midline in the region of the vaginal cuff. This demonstrates a slightly irregular medium density wall. It measures approximately 2.9 cm in greatest diameter. This abuts the posterior bladder wall, which appears to be mildly thickened. This process cannot be clearly from the left lateral wall of the rectosigmoid colon. Just inferior to this collection of fluid and gas there are additional gas collections which presumably lie within the vagina. The bowel loops are not dilated. The appendix is visualized and shows no abnormality. No free air or significant volume of free fluid is evident in the abdomen or pelvis. IMPRESSION: Small postoperative collection of gas and fluid at the level of the vaginal cuff raising the possibility of abscess. PQRS Compliance Statement: One or more of the following individualized dose reduction techniques were utilized for this examination: 1. Automated exposure control 2. Adjustment of the mA and/or kV according to patient size 3. Use of iterative reconstruction technique
[2017-09-28] MEDS ORDERED: PIPERACILLIN/TAZO IV Push 4.5 GM VIAL. IVP ONE (15:15)
[2017-09-28] MEDS ORDERED: KETOROLAC 30 MG/ML INJ. IV ONE (15:15)
[2017-09-28] MEDS ORDERED: PIPERACILLIN/TAZOBACTAM 4.5 GM in IV DEXTROSE 5% 100 ML IV ONE (15:15)
[2017-09-28 17:30] VITALS: BP 132/71
[2017-09-28] MEDS ORDERED: MORPHINE SULFATE 2 MG/ML DISP.SYRIN. IV PRN (17:45)
[2017-09-28] MEDS ORDERED: oxyCODONE/APAP 5/325 1 TAB TABLET PO PRN ×2 (17:45)
[2017-09-28] MEDS ORDERED: 0.9 % SODIUM CHLORIDE 10 ML DISP.SYRIN. IV PRN (17:45)
[2017-09-28] MEDS ORDERED: ceFAZolin SODIUM 1 GM in IV DEXTROSE 5% 50 ML IV SCH (17:45)
[2017-09-28] MEDS ORDERED: MAG HYDROX/ALUMINUM HYD/SIMETH 30 ML ORAL.SUSP PO PRN (17:45)
[2017-09-28] MEDS ORDERED: ONDANSETRON PF 4 MG/2 ML VIAL. IV PRN (17:45)
[2017-09-28] MEDS ORDERED: METOCLOPRAMIDE HCL 10 MG/2 ML VIAL. IV PRN (17:45)
[2017-09-28 18:00] VITALS: BP 136/86
[2017-09-28] MEDS: KETOROLAC 30 MG/ML INJ. IV SCH (18:00)
[2017-09-28] MEDS ORDERED: ZOLPIDEM 5 MG TABLET. PO PRN (18:30)
[2017-09-28 19:15] VITALS: BP 128/82
[2017-09-28] MEDS ORDERED: diphenhydrAMINE 50 MG/ML VIAL ONE ×2 (20:00→20:14)
[2017-09-28 20:20] VITALS: BP 159/92
[2017-09-28] MEDS: diphenhydrAMINE HCL 25 MG CAPSULE PO PRN (20:30)
[2017-09-28] MEDS ORDERED: diphenhydrAMINE 50 MG/ML VIAL IM ONE (20:45)
[2017-09-28] MEDS ORDERED: FAMOTIDINE 20 MG/2 ML VIAL IVP ONE (21:15)
[2017-09-28] MEDS ORDERED: methylPREDNISolone SOD SUCC PF 125 MG/2 ML VIAL. IV ONE (21:15)
[2017-09-28] MEDS ORDERED: diazePAM 5 MG TABLET PO ONE ×2 (21:15→21:30)
[2017-09-28] MEDS ORDERED: LEVOTHYROXINE 88 MCG TABLET PO ONE (21:15)
[2017-09-28] MEDS: PIPERACILLIN/TAZO IV Push 4.5 GM VIAL. IVP SCH (22:00)
[2017-09-29] MEDS ORDERED: PIPERACILLIN/TAZOBACTAM 4.5 GM in IV DEXTROSE 5% 100 ML IV SCH ×2
[2017-09-29 05:00] VITALS: BP 117/67
[2017-09-29 05:25] LABS: BASO % 0 % (0-3); EOS % 0 % (0-3); HEMOGLOBIN 12.5 g/dL (12.0-15.5); LYMPH # 0.6 x10^3/uL (1.0-4.8); LYMPH % 7 % (24-48); MEAN CORPUSCULAR HEMOGLOBIN 29 pg (25-35); MEAN CORPUSCULAR HGB CONC 33 g/dL (31-37); MEAN CORPUSCULAR VOLUME 87 fL (79-100); MONO % 1 % (0-9); NEUT % 91 % (31-73); PLATELET COUNT 271 x10^3/uL (140-400); RED BLOOD COUNT 4.37 x10^6/uL (3.50-5.40); RED CELL DISTRIBUTION WIDTH 14.1 % (11.5-14.5); WHITE BLOOD COUNT 8.4 x10^3/uL (4.0-11.0)
[2017-09-29] MEDS: KETOROLAC 30 MG/ML INJ. IV SCH ×4 (06:00→18:00)
[2017-09-29] MEDS: PIPERACILLIN/TAZO IV Push 4.5 GM VIAL. IVP SCH (06:00)
[2017-09-29 06:48] LABS: ALBUMIN 3.2 g/dL (3.4-5.0); ALBUMIN/GLOBULIN RATIO 0.8 (1.0-1.7); CALCIUM 8.6 mg/dL (8.5-10.1); GFR 59.2; POTASSIUM 4.1 mmol/L (3.5-5.1); TOTAL BILIRUBIN 0.2 mg/dL (0.2-1.0); TOTAL PROTEIN 7.4 g/dL (6.4-8.2)
[2017-09-29] MEDS: LINACLOTIDE 145 MCG CAPSULE. PO SCH (07:00)
[2017-09-29 08:30] LABS: OVALOCYTES FEW; PLT ESTIMATE ADEQUATE (ADEQUATE); POLYCHROMASIA SLIGHT
[2017-09-29] MEDS: diazePAM 5 MG TABLET PO PRN ×3 (09:15→20:54)
[2017-09-29] MEDS ORDERED: diazePAM 5 MG TABLET PO ONE (09:15)
[2017-09-29] MEDS: diphenhydrAMINE HCL 25 MG CAPSULE PO PRN ×4 (10:17→18:26)
[2017-09-29 10:28] VITALS: BP 123/72
[2017-09-29 11:30] VITALS: BP_SYST 88
[2017-09-29 13:34] LABS: FREE T4 1.09 ng/dL (0.76-1.46)
[2017-09-29 14:24] VITALS: BP 123/64
--- NOTE | 2017-09-29 14:31 | PDOC2 ---
CONSULT Date of Consult Date of Consult DATE: 09/29/17 TIME: 14:17 Reason for Consult Reason for Consult: Palpitations Referring Physician Referring Physician: Dr. Ambrosio Identification/Chief Complaint Chief Complaint Palpitations Problems: History of Present Illness Reason for Visit: This patient is a pleasant 47-year-old lady that has a known history of thyroid disease. About 2 weeks ago she had a hysterectomy and bladder surgery. The patient has been having problems with defecation since then and is on multiple laxatives. She has also been having episodes of palpitations since she received some antibiotics. She states that she can feel her heart racing and that she feels very short of breath and feels like she cannot get air in and like a tightness in her neck and that she can't swallow when this happens her has checked her pulse with some of these episodes and states that it was at least 140. The patient denies any loss of consciousness feels that it's very uncomfortable especially the situation where she feels that she cannot breathe and because there is something obstructing in the neck. At the time that I saw the patient she was feeling better but was quite anxious. Past Medical History Psych: Anxiety Endocrine: Hypothyroidism Current Problem List Problem List Problems Medical Problems: (1) Post op infection Status: Acute Current Medications Current Medications Current Medications Sodium Chloride 1,000 ml @ 1,000 mls/hr Q1H IV Last administered on 12:36; Start 09/28/17 at 12:36; Stop 09/28/17 at 13:35; Status DC Iohexol (Omnipaque 300 Mg/ml) 75 ml 1X ONCE IV Last administered on 13:46; Start 09/28/17 at 13:00; Stop 09/29/17 at 10:37; Status DC Info (Do NOT chart on this entry -- for MONITORING) 1 each PRN DAILY PRN MC SEE COMMENTS; Start 09/28/17 at 13:00; Stop 09/29/17 at 10:37; Status DC Piperacillin Sod/ Tazobactam Sod 4.5 gm/Dextrose 100 ml @ 200 mls/hr 1X ONCE IV ; Start 09/28/17 at 15:15; Stop 09/28/17 at 15:15; Status DC Ketorolac Tromethamine (Toradol) 30 mg 1X ONCE IV Last administered on 15:23; Start 09/28/17 at 15:15; Stop 09/29/17 at 10:37; Status DC Piperacillin Sod/ Tazobactam Sod (Zosyn) 4.5 gm 1X ONCE IVP Last administered on 09/28/17 15:52; Start 09/28/17 at 15:15; Stop 09/29/17 at 10:37; Status DC Al Hydroxide/Mg Hydroxide (Mylanta Plus Xs) 30 ml PRN Q3HRS PRN PO HEARTBURN / GAS; Start 09/28/17 at 17:45 Diphenhydramine HCl (Benadryl) 25 mg PRN Q6HRS PRN PO ITCHING Last administered on 09/29/17 10:50; Start 09/28/17 at 17:45 Sodium Chloride (Normal Saline Flush) 3 ml QSHIFT PRN IV AFTER MEDS AND BLOOD DRAWS; Start 09/28/17 at 17:45 Oxycodone/ Acetaminophen (Percocet 5/325) 1 tab PRN Q4HRS PRN PO MILD PAIN, 1ST CHOICE Last administered on 09/28/17 19:23; Start 09/28/17 at 17:45 Oxycodone/ Acetaminophen (Percocet 5/325) 2 tab PRN Q4HRS PRN PO MODERATE PAIN , SEVERE PAIN; Start 09/28/17 at 17:45 Morphine Sulfate 2 mg PRN Q1HR PRN IV PAIN; Start 09/28/17 at 17:45 Ondansetron HCl (Zofran) 4 mg PRN Q6HRS PRN IV NAUESA, 1ST CHOICE; Start 09/28 at 17:45 Metoclopramide HCl (Reglan Vial) 10 mg PRN Q6HRS PRN IV Nausea/Vomiting, 1st Choice; Start 09/28/17 at 17:45 Cefazolin Sodium 1 gm/Dextrose 50 ml @ 100 mls/hr Q6H IV ; Start 09/28/17 at 17:45; Stop 09/29/17 at 06:14; Status UNV Ketorolac Tromethamine (Toradol) 30 mg Q6HRS IV ; Start 09/28/17 at 18:00; Stop 10/03/17 at 17:59 Linaclotide (Linzess) 145 mcg DAILY07 PO ; Start 09/29/17 at 07:00 Zolpidem Tartrate (Ambien) 5 mg PRN QHS PRN PO INSOMNIA; Start 09/28/17 at 18: 30 Diphenhydramine HCl (Benadryl) 50 mg STK-MED ONCE .ROUTE ; Start 09/28/17 at 20 :14; Stop 09/28/17 at 20:15; Status DC Diphenhydramine HCl (Benadryl) 50 mg 1X ONCE IM ; Start 09/28/17 at 20:45; Stop 09/29/17 at 10:37; Status DC Piperacillin Sod/ Tazobactam Sod 4.5 gm/Dextrose 100 ml @ 200 mls/hr Q6HRS IV ; Start 09/29/17 at 00:00; Status UNV Piperacillin Sod/ Tazobactam Sod (Zosyn) 4.5 gm Q6HRS IVP ; Start 09/28/17 at 22:00; Stop 09/29/17 at 10:37; Status DC Methylprednisolone Sodium Succinate (SOLU-Medrol 125MG VIAL) 125 mg 1X ONCE IV Last administered on 09/28/17 21:32; Start 09/28/17 at 21:15; Stop at 10:37; Status DC Famotidine (Pepcid Vial) 20 mg 1X ONCE IVP Last administered on 09/28/17 21: 32; Start 09/28/17 at 21:15; Stop 09/28/17 at 21:16; Status DC Levothyroxine Sodium (Synthroid) 88 mcg 1X ONCE PO Last administered on 10:50; Start 09/28/17 at 21:15; Stop 09/28/17 at 21:16; Status DC Diazepam (Valium) 5 mg 1X ONCE PO Last administered on 09/28/17 21:30; Start 09/28/17 at 21:15; Stop 09/29/17 at 10:37; Status DC Diazepam (Valium) 10 mg 1X ONCE PO Last administered on 09/28/17 22:37; Start 09/28/17 at 21:30; Stop 09/29/17 at 10:37; Status DC Diazepam (Valium) 10 mg 1X ONCE PO Last administered on 09/29/17 09:10; Start 09/29/17 at 09:15; Stop 09/29/17 at 10:37; Status DC Diazepam (Valium) 10 mg PRN Q6HRS PRN PO ANXIETY Last administered on t 09:15; Start 09/29/17 at 10:00 Active Scripts Active Percocet 5-325 Mg Tablet (Oxycodone/Acetaminophen) 1 Each Tablet 1 Tab PO PRN Q6HRS PRN Ibuprofen 800 Mg Tablet 800 Mg PO PRN Q6HRS PRN Colace (Docusate Sodium) 100 Mg Capsule 100 Mg PO BID Reported Levothyroxine Sodium 75 Mcg Tablet 75 Mcg PO DAILYAC Wellbutrin Xl (Bupropion Hcl) 300 Mg Tab.er.24h 300 Mg PO DAILY Allergies Allergies: Coded Allergies: No Known Drug Allergies (Unverified , 09/13/17) Physical Exam General: Alert, Oriented X3, Cooperative HEENT: Atraumatic, PERRLA, Other (oral mucosa is dry. The thyroid is palpable and perhaps slightly enlarged no nodes were felt) Lungs: Clear to auscultation Heart: Regular rate, Normal S1, Normal S2, No murmurs Abdomen: Normal bowel sounds Neuro: Other (grossly intact) Psych/Mental Status: Other (very anxious) Vitals VITALS Vital Signs Date Time Temp Pulse Resp B/P (MAP) Pulse Ox O2 Delivery O2 Flow Rate FiO2 09/29/17 11:30 88/ 99 Room Air 09/29/17 10:28 98.0 92 98.0 09/29/17 09:45 22 Labs Labs Laboratory Tests Test 09/28/17 13:21 09/28/17 13:25 09/28/17 20:28 09/29/17 05:10 Urine Collection Type Unknown Urine Color Yellow Urine Clarity Clear Urine pH 6.0 Urine Specific [place] 1.010 Urine Protein Negative mg/dL (NEG-TRACE) Urine Glucose (UA) Negative mg/dL (NEG) Urine Ketones (Stick) Negative mg/dL (NEG) Urine Blood Negative (NEG) Urine Nitrite Negative (NEG) Urine Bilirubin Negative (NEG) Urine Urobilinogen Dipstick 0.2 mg/dL (0.2 mg/dL) Urine Leukocyte Esterase Trace (NEG) Urine RBC 1-2 /HPF (0-2) Urine WBC 5-10 /HPF (0-4) Urine Squamous Epithelial Cells Few /LPF Urine Bacteria Few /HPF (0-FEW) Urine Mucus Slight /LPF White Blood Count 8.9 x10^3/uL (4.0-11.0) 8.4 x10^3/uL (4.0-11.0) Red Blood Count 4.28 x10^6/uL (3.50-5.40) 4.37 x10^6/uL (3.50-5.40) Hemoglobin 12.2 g/dL (12.0-15.5) 12.5 g/dL (12.0-15.5) Hematocrit 37.2 % (36.0-47.0) 38.0 % (36.0-47.0) Mean Corpuscular Volume 87 fL (79-100) 87 fL (79-100) Mean Corpuscular Hemoglobin 29 pg (25-35) 29 pg (25-35) Mean Corpuscular Hemoglobin Concent 33 g/dL (31-37) 33 g/dL (31-37) Red Cell Distribution Width 14.2 % (11.5-14.5) 14.1 % (11.5-14.5) Platelet Count 276 x10^3/uL (140-400) 271 x10^3/uL (140-400) Neutrophils (%) (Auto) 76 % (31-73) 91 % (31-73) Lymphocytes (%) (Auto) 14 % (24-48) 7 % (24-48) Monocytes (%) (Auto) 7 % (0-9) 1 % (0-9) Eosinophils (%) (Auto) 2 % (0-3) 0 % (0-3) Basophils (%) (Auto) 1 % (0-3) 0 % (0-3) Neutrophils # (Auto) 6.8 x10^3uL (1.8-7.7) 7.7 x10^3uL (1.8-7.7) Lymphocytes # (Auto) 1.3 x10^3/uL (1.0-4.8) 0.6 x10^3/uL (1.0-4.8) Monocytes # (Auto) 0.6 x10^3/uL (0.0-1.1) 0.1 x10^3/uL (0.0-1.1) Eosinophils # (Auto) 0.1 x10^3/uL (0.0-0.7) 0.0 x10^3/uL (0.0-0.7) Basophils # (Auto) 0.1 x10^3/uL (0.0-0.2) 0.0 x10^3/uL (0.0-0.2) Sodium Level 138 mmol/L (136-145) 140 mmol/L (136-145) Potassium Level 4.5 mmol/L (3.5-5.1) 4.1 mmol/L (3.5-5.1) Chloride Level 102 mmol/L (98-107) 105 mmol/L (98-107) Carbon Dioxide Level 28 mmol/L (21-32) 22 mmol/L (21-32) Anion Gap 8 (6-14) 13 (6-14) Blood Urea Nitrogen 12 mg/dL (7-20) 14 mg/dL (7-20) Creatinine 1.0 mg/dL (0.6-1.0) 1.0 mg/dL (0.6-1.0) Estimated GFR (Cockcroft-Gault) 59.2 59.2 BUN/Creatinine Ratio 12 (6-20) 14 (6-20) Glucose Level 100 mg/dL (70-99) 172 mg/dL (70-99) Calcium Level 9.0 mg/dL (8.5-10.1) 8.6 mg/dL (8.5-10.1) Total Bilirubin 0.4 mg/dL (0.2-1.0) 0.2 mg/dL (0.2-1.0) Aspartate Amino Transf (AST/SGOT) 15 U/L (15-37) 14 U/L (15-37) Alanine Aminotransferase (ALT/SGPT) 22 U/L (14-59) 20 U/L (14-59) Alkaline Phosphatase 109 U/L (46-116) 109 U/L (46-116) Total Protein 7.3 g/dL (6.4-8.2) 7.4 g/dL (6.4-8.2) Albumin 3.4 g/dL (3.4-5.0) 3.2 g/dL (3.4-5.0) Albumin/Globulin Ratio 0.9 (1.0-1.7) 0.8 (1.0-1.7) Lipase 64 U/L (73-393) Glucose (Fingerstick) 112 mg/dL (70-99) Segmented Neutrophils % 89 % (35-66) Band Neutrophils % 5 % (0-9) Lymphocytes % 6 % (24-48) Platelet Estimate Adequate (ADEQUATE) Polychromasia Slight Ovalocytes Few Thyroid Stimulating Hormone (TSH) 0.636 uIU/mL (0.358-3.74) Test 09/29/17 06:00 Free Thyroxine 1.09 ng/dL (0.76-1.46) Free Triiodothyronine (T3) pg/mL 1.92 pg/mL (2.18-3.98) Laboratory Tests Test 09/28/17 20:28 09/29/17 05:10 09/29/17 06:00 Glucose (Fingerstick) 112 mg/dL (70-99) White Blood Count 8.4 x10^3/uL (4.0-11.0) Red Blood Count 4.37 x10^6/uL (3.50-5.40) Hemoglobin 12.5 g/dL (12.0-15.5) Hematocrit 38.0 % (36.0-47.0) Mean Corpuscular Volume 87 fL (79-100) Mean Corpuscular Hemoglobin 29 pg (25-35) Mean Corpuscular Hemoglobin Concent 33 g/dL (31-37) Red Cell Distribution Width 14.1 % (11.5-14.5) Platelet Count 271 x10^3/uL (140-400) Neutrophils (%) (Auto) 91 % (31-73) Lymphocytes (%) (Auto) 7 % (24-48) Monocytes (%) (Auto) 1 % (0-9) Eosinophils (%) (Auto) 0 % (0-3) Basophils (%) (Auto) 0 % (0-3) Neutrophils # (Auto) 7.7 x10^3uL (1.8-7.7) Lymphocytes # (Auto) 0.6 x10^3/uL (1.0-4.8) Monocytes # (Auto) 0.1 x10^3/uL (0.0-1.1) Eosinophils # (Auto) 0.0 x10^3/uL (0.0-0.7) Basophils # (Auto) 0.0 x10^3/uL (0.0-0.2) Segmented Neutrophils % 89 % (35-66) Band Neutrophils % 5 % (0-9) Lymphocytes % 6 % (24-48) Platelet Estimate Adequate (ADEQUATE) Polychromasia Slight Ovalocytes Few Sodium Level 140 mmol/L (136-145) Potassium Level 4.1 mmol/L (3.5-5.1) Chloride Level 105 mmol/L (98-107) Carbon Dioxide Level 22 mmol/L (21-32) Anion Gap 13 (6-14) Blood Urea Nitrogen 14 mg/dL (7-20) Creatinine 1.0 mg/dL (0.6-1.0) Estimated GFR (Cockcroft-Gault) 59.2 BUN/Creatinine Ratio 14 (6-20) Glucose Level 172 mg/dL (70-99) Calcium Level 8.6 mg/dL (8.5-10.1) Total Bilirubin 0.2 mg/dL (0.2-1.0) Aspartate Amino Transf (AST/SGOT) 14 U/L (15-37) Alanine Aminotransferase (ALT/SGPT) 20 U/L (14-59) Alkaline Phosphatase 109 U/L (46-116) Total Protein 7.4 g/dL (6.4-8.2) Albumin 3.2 g/dL (3.4-5.0) Albumin/Globulin Ratio 0.8 (1.0-1.7) Thyroid Stimulating Hormone (TSH) 0.636 uIU/mL (0.358-3.74) Free Thyroxine 1.09 ng/dL (0.76-1.46) Free Triiodothyronine (T3) pg/mL 1.92 pg/mL (2.18-3.98) Assessment/Plan Assessment/Plan This patient is having episodes of palpitations. She had surgery 2 weeks ago and has been having multiple episodes. She is concerned with the possibility of having had a reaction to the antibiotics. From a cardiac standpoint she has no history but there is a family history of mitral valve prolapse therefore I would like to get an echocardiogram. In addition to that because of her history of thyroid problems I would like to get a full thyroid panel as well as a sedimentation rate and an BELEN. I would like to transfer her to telemetry to be able to monitor her heart rhythm and catch any episodes of tachycardia. I have discussed this with the patient and her family. Thank you very much for asking me to participate in the care of this patient. VICKIE DENNY MD Sep 29, 2017 14:31
[2017-09-29 18:12] LABS: FSH 82.9 mIU/mL (.); LUTEINIZING HORMONE 38.9 mIU/mL (.)
[2017-09-29 19:35] VITALS: BP 151/75
--- NOTE | 2017-09-29 23:42 | PDOC ---
Provider Note Provider Note Pt refused exam secondary to being anxious VSS plan exam later today KOKI CRUZ MD Sep 29, 2017 23:42
[2017-09-29 23:44] VITALS: BP 109/50
[2017-09-30] MEDS: KETOROLAC 30 MG/ML INJ. IV SCH ×5 (06:00→21:50)
[2017-09-30 07:00] VITALS: BP 104/70
[2017-09-30] MEDS ORDERED: diphenhydrAMINE HCL 25 MG CAPSULE PO ONE (09:00)
[2017-09-30] MEDS: LINACLOTIDE 145 MCG CAPSULE. PO SCH (09:15)
--- NOTE | 2017-09-30 10:11 | RAD ---
Thyroid ultrasound 09/29/2017 Clinical indication: Thyroid ultrasound 04/09/2006. Findings: Right lobe of the thyroid measures 4.5 x 1.5 x 1.8 cm. No discrete nodule identified. Left lobe thyroid measures 3.6 x 1.5 x 1.5 cm with no discrete nodule identified. AP isthmus measurement 0.5 cm. Impression: Unremarkable thyroid evaluation.
[2017-09-30 11:00] VITALS: BP 136/75
[2017-09-30] MEDS: diazePAM 5 MG TABLET PO PRN ×2 (11:11→19:31)
--- NOTE | 2017-09-30 14:46 | PDOC ---
SURGICAL PROGRESS NOTE Subjective S/P [facility] BSO currently being evaluated for atypical allergic Rxn and anxiety Cuff mass most likely old blood possible abscess Unable to cooperate with exam [place] to see tomorrow Vital Signs Vital Signs Date Time Temp Pulse Resp B/P (MAP) Pulse Ox O2 Delivery O2 Flow Rate FiO2 09/30/17 11:00 98.8 73 20 136/75 (95) 97 Room Air 98.8 I&O Intake and Output 09/30/17 07:00 Intake Total 320 ml Balance 320 ml Intake Oral 320 ml # Voids 3 Labs Laboratory Tests Test 09/28/17 20:28 09/29/17 05:10 09/29/17 06:00 09/29/17 14:06 Glucose (Fingerstick) 112 mg/dL (70-99) White Blood Count 8.4 x10^3/uL (4.0-11.0) Red Blood Count 4.37 x10^6/uL (3.50-5.40) Hemoglobin 12.5 g/dL (12.0-15.5) Hematocrit 38.0 % (36.0-47.0) Mean Corpuscular Volume 87 fL (79-100) Mean Corpuscular Hemoglobin 29 pg (25-35) Mean Corpuscular Hemoglobin Concent 33 g/dL (31-37) Red Cell Distribution Width 14.1 % (11.5-14.5) Platelet Count 271 x10^3/uL (140-400) Neutrophils (%) (Auto) 91 % (31-73) Lymphocytes (%) (Auto) 7 % (24-48) Monocytes (%) (Auto) 1 % (0-9) Eosinophils (%) (Auto) 0 % (0-3) Basophils (%) (Auto) 0 % (0-3) Neutrophils # (Auto) 7.7 x10^3uL (1.8-7.7) Lymphocytes # (Auto) 0.6 x10^3/uL (1.0-4.8) Monocytes # (Auto) 0.1 x10^3/uL (0.0-1.1) Eosinophils # (Auto) 0.0 x10^3/uL (0.0-0.7) Basophils # (Auto) 0.0 x10^3/uL (0.0-0.2) Segmented Neutrophils % 89 % (35-66) Band Neutrophils % 5 % (0-9) Lymphocytes % 6 % (24-48) Platelet Estimate Adequate (ADEQUATE) Polychromasia Slight Ovalocytes Few Sodium Level 140 mmol/L (136-145) Potassium Level 4.1 mmol/L (3.5-5.1) Chloride Level 105 mmol/L (98-107) Carbon Dioxide Level 22 mmol/L (21-32) Anion Gap 13 (6-14) Blood Urea Nitrogen 14 mg/dL (7-20) Creatinine 1.0 mg/dL (0.6-1.0) Estimated GFR (Cockcroft-Gault) 59.2 BUN/Creatinine Ratio 14 (6-20) Glucose Level 172 mg/dL (70-99) Calcium Level 8.6 mg/dL (8.5-10.1) Total Bilirubin 0.2 mg/dL (0.2-1.0) Aspartate Amino Transf (AST/SGOT) 14 U/L (15-37) Alanine Aminotransferase (ALT/SGPT) 20 U/L (14-59) Alkaline Phosphatase 109 U/L (46-116) Total Protein 7.4 g/dL (6.4-8.2) Albumin 3.2 g/dL (3.4-5.0) Albumin/Globulin Ratio 0.8 (1.0-1.7) Thyroid Stimulating Hormone (TSH) 0.636 uIU/mL (0.358-3.74) Follicle Stimulating Hormone 82.9 mIU/mL (.) Luteinizing Hormone 38.9 mIU/mL (.) Free Thyroxine 1.09 ng/dL (0.76-1.46) Free Triiodothyronine (T3) pg/mL 1.92 pg/mL (2.18-3.98) Erythrocyte Sedimentation Rate 48 (0-25) Problem List Problems Medical Problems: (1) Post op infection Status: Acute Assessment/Plan Continue current Tx Problems: OKKI CRUZ MD Sep 30, 2017 14:46
[2017-09-30 15:00] VITALS: BP 136/69
[2017-09-30] MEDS: predniSONE 20 MG TABLET PO SCH ×2 (15:29→20:47)
[2017-09-30] MEDS: buPROPion XL 150 MG TAB.ER.24H. PO SCH (15:29)
--- NOTE | 2017-09-30 15:57 | PDOC ---
PROGRESS NOTES Subjective Subjective Patient continued to have issues with palpitations and feeling extremely anxious. Presently in sinus rhythm Objective Objective Vital Signs Date Time Temp Pulse Resp B/P (MAP) Pulse Ox O2 Delivery O2 Flow Rate FiO2 09/30/17 15:00 98.8 90 20 136/69 (91) 98 Room Air 98.8 Intake and Output 09/30/17 07:00 Intake Total 320 ml Balance 320 ml Intake Oral 320 ml # Voids 3 Physical Exam Physical Exam No significant changes in cardiac exam Assessment Assessment We had a lengthy discussion with regards to her situation and causes for problems, this may be secondary to an anxiety disorder, depression, post hysterectomy depression, hormonal imbalance, panic attacks. Since she had been started and received already some steroids at this point checking the adrenal function would not be accurate I would like to go ahead and start her on a tapering course of prednisone, she had been on Wellbutrin but has not received it for a few days therefore I'm going to resume it at her previous dose of 300 mg a day. We will get an echocardiogram in the morning and I would also like to get a noncontrast CT of the head. The patient was in agreement with this approach. Problems Medical Problems: (1) Post op infection Status: Acute Comment Review of Relevant I have reviewed the following items sera (where applicable) has been applied. Labs Laboratory Tests Test 09/28/17 20:28 09/29/17 05:10 09/29/17 06:00 09/29/17 14:06 Glucose (Fingerstick) 112 mg/dL (70-99) White Blood Count 8.4 x10^3/uL (4.0-11.0) Red Blood Count 4.37 x10^6/uL (3.50-5.40) Hemoglobin 12.5 g/dL (12.0-15.5) Hematocrit 38.0 % (36.0-47.0) Mean Corpuscular Volume 87 fL (79-100) Mean Corpuscular Hemoglobin 29 pg (25-35) Mean Corpuscular Hemoglobin Concent 33 g/dL (31-37) Red Cell Distribution Width 14.1 % (11.5-14.5) Platelet Count 271 x10^3/uL (140-400) Neutrophils (%) (Auto) 91 % (31-73) Lymphocytes (%) (Auto) 7 % (24-48) Monocytes (%) (Auto) 1 % (0-9) Eosinophils (%) (Auto) 0 % (0-3) Basophils (%) (Auto) 0 % (0-3) Neutrophils # (Auto) 7.7 x10^3uL (1.8-7.7) Lymphocytes # (Auto) 0.6 x10^3/uL (1.0-4.8) Monocytes # (Auto) 0.1 x10^3/uL (0.0-1.1) Eosinophils # (Auto) 0.0 x10^3/uL (0.0-0.7) Basophils # (Auto) 0.0 x10^3/uL (0.0-0.2) Segmented Neutrophils % 89 % (35-66) Band Neutrophils % 5 % (0-9) Lymphocytes % 6 % (24-48) Platelet Estimate Adequate (ADEQUATE) Polychromasia Slight Ovalocytes Few Sodium Level 140 mmol/L (136-145) Potassium Level 4.1 mmol/L (3.5-5.1) Chloride Level 105 mmol/L (98-107) Carbon Dioxide Level 22 mmol/L (21-32) Anion Gap 13 (6-14) Blood Urea Nitrogen 14 mg/dL (7-20) Creatinine 1.0 mg/dL (0.6-1.0) Estimated GFR (Cockcroft-Gault) 59.2 BUN/Creatinine Ratio 14 (6-20) Glucose Level 172 mg/dL (70-99) Calcium Level 8.6 mg/dL (8.5-10.1) Total Bilirubin 0.2 mg/dL (0.2-1.0) Aspartate Amino Transf (AST/SGOT) 14 U/L (15-37) Alanine Aminotransferase (ALT/SGPT) 20 U/L (14-59) Alkaline Phosphatase 109 U/L (46-116) Total Protein 7.4 g/dL (6.4-8.2) Albumin 3.2 g/dL (3.4-5.0) Albumin/Globulin Ratio 0.8 (1.0-1.7) Thyroid Stimulating Hormone (TSH) 0.636 uIU/mL (0.358-3.74) Follicle Stimulating Hormone 82.9 mIU/mL (.) Luteinizing Hormone 38.9 mIU/mL (.) Free Thyroxine 1.09 ng/dL (0.76-1.46) Free Triiodothyronine (T3) pg/mL 1.92 pg/mL (2.18-3.98) Erythrocyte Sedimentation Rate 48 (0-25) Medications Current Medications Sodium Chloride 1,000 ml @ 1,000 mls/hr Q1H IV Last administered on 12:36; Start 09/28/17 at 12:36; Stop 09/28/17 at 13:35; Status DC Iohexol (Omnipaque 300 Mg/ml) 75 ml 1X ONCE IV Last administered on 13:46; Start 09/28/17 at 13:00; Stop 09/29/17 at 10:37; Status DC Info (Do NOT chart on this entry -- for MONITORING) 1 each PRN DAILY PRN MC SEE COMMENTS; Start 09/28/17 at 13:00; Stop 09/29/17 at 10:37; Status DC Piperacillin Sod/ Tazobactam Sod 4.5 gm/Dextrose 100 ml @ 200 mls/hr 1X ONCE IV ; Start 09/28/17 at 15:15; Stop 09/28/17 at 15:15; Status DC Ketorolac Tromethamine (Toradol) 30 mg 1X ONCE IV Last administered on 15:23; Start 09/28/17 at 15:15; Stop 09/29/17 at 10:37; Status DC Piperacillin Sod/ Tazobactam Sod (Zosyn) 4.5 gm 1X ONCE IVP Last administered on 09/28/17 15:52; Start 09/28/17 at 15:15; Stop 09/29/17 at 10:37; Status DC Al Hydroxide/Mg Hydroxide (Mylanta Plus Xs) 30 ml PRN Q3HRS PRN PO HEARTBURN / GAS; Start 09/28/17 at 17:45 Diphenhydramine HCl (Benadryl) 25 mg PRN Q6HRS PRN PO ITCHING Last administered on 09/29/17 18:26; Start 09/28/17 at 17:45 Sodium Chloride (Normal Saline Flush) 3 ml QSHIFT PRN IV AFTER MEDS AND BLOOD DRAWS; Start 09/28/17 at 17:45 Oxycodone/ Acetaminophen (Percocet 5/325) 1 tab PRN Q4HRS PRN PO MILD PAIN, 1ST CHOICE Last administered on 09/28/17t 19:23; Start 09/28/17 at 17:45 Oxycodone/ Acetaminophen (Percocet 5/325) 2 tab PRN Q4HRS PRN PO MODERATE PAIN , SEVERE PAIN; Start 09/28/17 at 17:45 Morphine Sulfate 2 mg PRN Q1HR PRN IV PAIN; Start 09/28/17 at 17:45 Ondansetron HCl (Zofran) 4 mg PRN Q6HRS PRN IV NAUESA, 1ST CHOICE; Start 09/28 at 17:45 Metoclopramide HCl (Reglan Vial) 10 mg PRN Q6HRS PRN IV Nausea/Vomiting, 1st Choice; Start 09/28/17 at 17:45 Cefazolin Sodium 1 gm/Dextrose 50 ml @ 100 mls/hr Q6H IV ; Start 09/28/17 at 17:45; Stop 09/29/17 at 06:14; Status UNV Ketorolac Tromethamine (Toradol) 30 mg Q6HRS IV ; Start 09/28/17 at 18:00; Stop 10/03/17 at 17:59 Linaclotide (Linzess) 145 mcg DAILY07 PO Last administered on 09/30/17t 09:15 ; Start 09/29/17 at 07:00 Zolpidem Tartrate (Ambien) 5 mg PRN QHS PRN PO INSOMNIA; Start 09/28/17 at 18: 30 Diphenhydramine HCl (Benadryl) 50 mg STK-MED ONCE .ROUTE ; Start 09/28/17 at 20 :14; Stop 09/28/17 at 20:15; Status DC Diphenhydramine HCl (Benadryl) 50 mg 1X ONCE IM ; Start 09/28/17 at 20:45; Stop 09/29/17 at 10:37; Status DC Piperacillin Sod/ Tazobactam Sod 4.5 gm/Dextrose 100 ml @ 200 mls/hr Q6HRS IV ; Start 09/29/17 at 00:00; Status UNV Piperacillin Sod/ Tazobactam Sod (Zosyn) 4.5 gm Q6HRS IVP ; Start 09/28/17 at 22:00; Stop 09/29/17 at 10:37; Status DC Methylprednisolone Sodium Succinate (SOLU-Medrol 125MG VIAL) 125 mg 1X ONCE IV Last administered on 09/28/17 21:32; Start 09/28/17 at 21:15; Stop at 10:37; Status DC Famotidine (Pepcid Vial) 20 mg 1X ONCE IVP Last administered on 09/28/17 21: 32; Start 09/28/17 at 21:15; Stop 09/28/17 at 21:16; Status DC Levothyroxine Sodium (Synthroid) 88 mcg 1X ONCE PO Last administered on 10:50; Start 09/28/17 at 21:15; Stop 09/28/17 at 21:16; Status DC Diazepam (Valium) 5 mg 1X ONCE PO Last administered on 09/28/17 21:30; Start 09/28/17 at 21:15; Stop 09/29/17 at 10:37; Status DC Diazepam (Valium) 10 mg 1X ONCE PO Last administered on 09/28/17 22:37; Start 09/28/17 at 21:30; Stop 09/29/17 at 10:37; Status DC Diazepam (Valium) 10 mg 1X ONCE PO Last administered on 09/29/17 09:10; Start 09/29/17 at 09:15; Stop 09/29/17 at 10:37; Status DC Diazepam (Valium) 10 mg PRN Q6HRS PRN PO ANXIETY Last administered on 11:11; Start 09/29/17 at 10:00 Diphenhydramine HCl (Benadryl) 50 mg 1X ONCE PO Last administered on 09:16; Start 09/30/17 at 09:00; Stop 09/30/17 at 09:01; Status DC Bupropion HCl (Wellbutrin Xl) 300 mg DAILY PO Last administered on 09/30/17 15:29; Start 09/30/17 at 15:00 Prednisone (Prednisone) 20 mg BID PO Last administered on 09/30/17 15:29; Start 09/30/17 at 15:00 Active Scripts Active Percocet 5-325 Mg Tablet (Oxycodone/Acetaminophen) 1 Each Tablet 1 Tab PO PRN Q6HRS PRN Ibuprofen 800 Mg Tablet 800 Mg PO PRN Q6HRS PRN Colace (Docusate Sodium) 100 Mg Capsule 100 Mg PO BID Reported Levothyroxine Sodium 75 Mcg Tablet 75 Mcg PO DAILYAC Wellbutrin Xl (Bupropion Hcl) 300 Mg Tab.er.24h 300 Mg PO DAILY Vitals/I & O Vital Sign - Last 24 Hours 09/29/17 09/29/17 09/29/17 09/30/17 19:32 19:35 23:44 03:54 Temp 98.6 98.7 98.6 98.7 Pulse 98 88 72 Resp 17 18 B/P (MAP) 151/75 (100) 109/50 (69) Pulse Ox 99 97 O2 Delivery Room Air Room Air Room Air Room Air 09/30/17 09/30/17 09/30/17 09/30/17 07:00 08:00 11:00 15:00 Temp 98.8 98.8 98.8 98.8 98.8 98.8 Pulse 85 73 90 Resp 20 20 20 B/P (MAP) 104/70 (81) 136/75 (95) 136/69 (91) Pulse Ox 98 97 98 O2 Delivery Room Air Room Air Room Air Room Air Intake and Output 09/29/17 09/29/17 09/30/17 15:00 23:00 07:00 Intake Total 320 ml Balance 320 ml VICKIE DENNY MD Sep 30, 2017 15:57
[2017-09-30] MEDS: IBUPROFEN 800 MG TABLET. PO PRN (17:52)
[2017-09-30] MEDS: diphenhydrAMINE HCL 25 MG CAPSULE PO PRN (19:39)
[2017-09-30 23:55] VITALS: BP 118/50
[2017-10-01 03:55] VITALS: BP 121/49
[2017-10-01] MEDS: KETOROLAC 30 MG/ML INJ. IV SCH ×4 (06:00→21:44)
[2017-10-01] MEDS: LINACLOTIDE 145 MCG CAPSULE. PO SCH (06:32)
[2017-10-01 07:00] VITALS: BP 127/78
[2017-10-01] MEDS: predniSONE 20 MG TABLET PO SCH ×2 (08:36→21:40)
[2017-10-01] MEDS: buPROPion XL 150 MG TAB.ER.24H. PO SCH (08:37)
[2017-10-01] MEDS: diazePAM 5 MG TABLET PO PRN (08:37)
--- NOTE | 2017-10-01 08:55 | PDOC1 ---
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 [] Eyes: Denies change in visual acuity. [] HEENT: Denies nasal congestion or sore throat. [] Respiratory: Denies cough or shortness of breath. [] Cardiovascular: Denies chest pain or edema. [] GI: Denies abdominal pain, nausea, vomiting, bloody stools or diarrhea. [] : Denies dysuria, frequency, or hematuria. [] Female : Denies vaginal bleeding, discharge, or pelvic pain. [] Musculoskeletal: Denies back pain or joint pain. [] Integument: Denies rash. [] Neurologic: Denies headache, focal weakness or sensory changes. [] Endocrine: Denies polyuria or polydipsia. [] Lymphatic: Denies swollen glands. [] Psychiatric: Denies depression or anxiety. [] Family History Family History [] Current Medications Current Medications Current Medications Medications (Trade) Dose Ordered Sig/Neel Start Time Stop Time Status Last Admin Dose Admin Al Hydroxide/Mg Hydroxide (Mylanta Plus Xs) 30 ml PRN Q3HRS PRN 09/28/17 17:45 Bupropion HCl (Wellbutrin Xl) 300 mg DAILY 09/30/17 15:00 10/01/17 08:37 300 MG Cefazolin Sodium 1 gm/Dextrose 50 ml @ 100 mls/hr Q6H 09/28/17 17:45 09/29/17 06:14 UNV Diazepam (Valium) 10 mg PRN Q6HRS PRN 09/29/17 10:00 10/01/17 08:37 10 MG Diphenhydramine HCl (Benadryl) 50 mg 1X ONCE 09/30/17 09:00 09/30/17 09:01 DC 09/30/17 09:16 50 MG Famotidine (Pepcid Vial) 20 mg 1X ONCE 09/28/17 21:15 09/28/17 21:16 DC 09/28/17 21:32 20 MG Ibuprofen (Motrin) 800 mg PRN Q6HRS PRN 09/30/17 16:15 09/30/17 17:52 800 MG Info (Do NOT chart on this entry -- for MONITORING) 1 each PRN DAILY PRN 09/28/17 13:00 09/29/17 10:37 DC Iohexol (Omnipaque 300 Mg/ml) 75 ml 1X ONCE 09/28/17 13:00 09/29/17 10:37 DC 09/28/17 13:46 75 ML Ketorolac Tromethamine (Toradol) 30 mg Q6HRS 09/28/17 18:00 10/03/17 17:59 Levothyroxine Sodium (Synthroid) 88 mcg 1X ONCE 09/28/17 21:15 09/28/17 21:16 DC 09/28/17 10:50 88 MCG Linaclotide (Linzess) 145 mcg DAILY07 09/29/17 07:00 10/01/17 06:32 145 MCG Methylprednisolone Sodium Succinate (SOLU-Medrol 125MG VIAL) 125 mg 1X ONCE 09/28/17 21:15 09/29/17 10:37 DC 09/28/17 21:32 125 MG Metoclopramide HCl (Reglan Vial) 10 mg PRN Q6HRS PRN 09/28/17 17:45 Morphine Sulfate 2 mg PRN Q1HR PRN 09/28/17 17:45 Ondansetron HCl (Zofran) 4 mg PRN Q6HRS PRN 09/28/17 17:45 Oxycodone/ Acetaminophen (Percocet 5/325) 2 tab PRN Q4HRS PRN 09/28/17 17:45 Piperacillin Sod/ Tazobactam Sod (Zosyn) 4.5 gm Q6HRS 09/28/17 22:00 09/29/17 10:37 DC Piperacillin Sod/ Tazobactam Sod 4.5 gm/Dextrose 100 ml @ 200 mls/hr Q6HRS 09/29/17 00:00 UNV Prednisone (Prednisone) 20 mg BID 09/30/17 15:00 10/01/17 08:36 20 MG Sodium Chloride (Normal Saline Flush) 3 ml QSHIFT PRN 09/28/17 17:45 Zolpidem Tartrate (Ambien) 5 mg PRN QHS PRN 09/28/17 18:30 Allergies Allergies Allergies Coded Allergies Type Severity Reaction Last Updated Verified No Known Drug Allergies 09/13/17 No Physical Exam Physical Exam Constitutional: Well developed, Well nourished, No acute distress, Non-toxic appearance. [] HENT: Normocephalic, Atraumatic, Bilateral external ears normal, Oropharynx moist, No oral exudates, Nose normal. [] Eyes: PERRLA, EOMI, Conjunctiva normal, No discharge. [] Neck: Normal range of motion, No tenderness, Supple, No stridor. [] Cardiovascular: Normal heart rate, Normal rhythm, No murmurs, No rubs, No gallops. [] Thorax & Lungs: Normal breath sounds, No respiratory distress, No wheezing, No chest tenderness. [] Abdomen: Soft, nontender, normal active bowel sounds, no bruits no abdominal mass present. [] : deferred Skin: Warm, Dry, No erythema, rash, lesions, sores. [] Back: No tenderness, No CVA tenderness. [] Extremities: Intact distal pulses, No edema, No tenderness, No cyanosis, No clubbing. [] Neurologic: Alert & oriented x 3, Normal motor function, Normal sensory function , No focal deficits noted. [] Current Patient Data Current Patient Data Vital Signs Date Time Temp Pulse Resp B/P (MAP) Pulse Ox O2 Delivery O2 Flow Rate FiO2 09/30/17 07:00 98.8 85 20 104/70 (81) 98 Room Air 98.8 Vital Signs Date Time Temp Pulse Resp B/P (MAP) Pulse Ox O2 Delivery O2 Flow Rate FiO2 10/01/17 03:55 97.9 62 17 121/49 (73) 98 Room Air 97.9 Laboratory Tests Test 09/28/17 13:21 09/28/17 13:25 09/28/17 20:28 09/29/17 05:10 Urine Collection Type Unknown Urine Color Yellow Urine Clarity Clear Urine pH 6.0 Urine Specific [place] 1.010 Urine Protein Negative mg/dL (NEG-TRACE) Urine Glucose (UA) Negative mg/dL (NEG) Urine Ketones (Stick) Negative mg/dL (NEG) Urine Blood Negative (NEG) Urine Nitrite Negative (NEG) Urine Bilirubin Negative (NEG) Urine Urobilinogen Dipstick 0.2 mg/dL (0.2 mg/dL) Urine Leukocyte Esterase Trace (NEG) Urine RBC 1-2 /HPF (0-2) Urine WBC 5-10 /HPF (0-4) Urine Squamous Epithelial Cells Few /LPF Urine Bacteria Few /HPF (0-FEW) Urine Mucus Slight /LPF White Blood Count 8.9 x10^3/uL (4.0-11.0) 8.4 x10^3/uL (4.0-11.0) Red Blood Count 4.28 x10^6/uL (3.50-5.40) 4.37 x10^6/uL (3.50-5.40) Hemoglobin 12.2 g/dL (12.0-15.5) 12.5 g/dL (12.0-15.5) Hematocrit 37.2 % (36.0-47.0) 38.0 % (36.0-47.0) Mean Corpuscular Volume 87 fL (79-100) 87 fL (79-100) Mean Corpuscular Hemoglobin 29 pg (25-35) 29 pg (25-35) Mean Corpuscular Hemoglobin Concent 33 g/dL (31-37) 33 g/dL (31-37) Red Cell Distribution Width 14.2 % (11.5-14.5) 14.1 % (11.5-14.5) Platelet Count 276 x10^3/uL (140-400) 271 x10^3/uL (140-400) Neutrophils (%) (Auto) 76 % (31-73) H 91 % (31-73) H Lymphocytes (%) (Auto) 14 % (24-48) L 7 % (24-48) L Monocytes (%) (Auto) 7 % (0-9) 1 % (0-9) Eosinophils (%) (Auto) 2 % (0-3) 0 % (0-3) Basophils (%) (Auto) 1 % (0-3) 0 % (0-3) Neutrophils # (Auto) 6.8 x10^3uL (1.8-7.7) 7.7 x10^3uL (1.8-7.7) Lymphocytes # (Auto) 1.3 x10^3/uL (1.0-4.8) 0.6 x10^3/uL (1.0-4.8) L Monocytes # (Auto) 0.6 x10^3/uL (0.0-1.1) 0.1 x10^3/uL (0.0-1.1) Eosinophils # (Auto) 0.1 x10^3/uL (0.0-0.7) 0.0 x10^3/uL (0.0-0.7) Basophils # (Auto) 0.1 x10^3/uL (0.0-0.2) 0.0 x10^3/uL (0.0-0.2) Sodium Level 138 mmol/L (136-145) 140 mmol/L (136-145) Potassium Level 4.5 mmol/L (3.5-5.1) 4.1 mmol/L (3.5-5.1) Chloride Level 102 mmol/L (98-107) 105 mmol/L (98-107) Carbon Dioxide Level 28 mmol/L (21-32) 22 mmol/L (21-32) Anion Gap 8 (6-14) 13 (6-14) Blood Urea Nitrogen 12 mg/dL (7-20) 14 mg/dL (7-20) Creatinine 1.0 mg/dL (0.6-1.0) 1.0 mg/dL (0.6-1.0) Estimated GFR (Cockcroft-Gault) 59.2 59.2 BUN/Creatinine Ratio 12 (6-20) 14 (6-20) Glucose Level 100 mg/dL (70-99) H 172 mg/dL (70-99) H Calcium Level 9.0 mg/dL (8.5-10.1) 8.6 mg/dL (8.5-10.1) Total Bilirubin 0.4 mg/dL (0.2-1.0) 0.2 mg/dL (0.2-1.0) Aspartate Amino Transferase (AST) 15 U/L (15-37) 14 U/L (15-37) L Alanine Aminotransferase (ALT) 22 U/L (14-59) 20 U/L (14-59) Alkaline Phosphatase 109 U/L (46-116) 109 U/L (46-116) Total Protein 7.3 g/dL (6.4-8.2) 7.4 g/dL (6.4-8.2) Albumin 3.4 g/dL (3.4-5.0) 3.2 g/dL (3.4-5.0) L Albumin/Globulin Ratio 0.9 (1.0-1.7) L 0.8 (1.0-1.7) L Lipase 64 U/L (73-393) L Glucose (Fingerstick) 112 mg/dL (70-99) H Segmented Neutrophils % 89 % (35-66) H Band Neutrophils % 5 % (0-9) Lymphocytes % 6 % (24-48) L Platelet Estimate Adequate (ADEQUATE) Polychromasia Slight Ovalocytes Few Thyroid Stimulating Hormone (TSH) 0.636 uIU/mL (0.358-3.74) Follicle Stimulating Hormone 82.9 mIU/mL (.) Luteinizing Hormone 38.9 mIU/mL (.) Test 09/29/17 06:00 09/29/17 14:06 Free Thyroxine 1.09 ng/dL (0.76-1.46) Free Triiodothyronine (T3) pg/mL 1.92 pg/mL (2.18-3.98) L Erythrocyte Sedimentation Rate 48 (0-25) H Laboratory Tests 09/28/17 13:25 09/29/17 05:10 Laboratory Tests 09/28/17 13:25 09/29/17 05:10 Radiology/Procedures Radiology/Procedures [] Course & Med Decision Making Course & Med Decision Making Pertinent Labs and Imaging studies reviewed. (See chart for details) [] Assessment/Plan Cuff mass abscess vs hematoma Abs FU labs Exam in AM Problems: KOKI CRUZ MD Oct 01, 2017 08:55
--- NOTE | 2017-10-01 09:55 | RAD ---
CT scan of the head without contrast 10/01/2017 Clinical history: Mental status changes. Technique: Unenhanced, contiguous, 5 mm axial sections were obtained through the head. One or more of the following individualized dose reduction techniques were utilized for this study: 1. Automated exposure control. 2. Adjustment of the mA and/or kV according to patient size. 3. Use of iterative reconstruction technique. Findings: The ventricles and sulci are within normal limits in size and configuration. No area of abnormal attenuation is involving the brain parenchyma. No extra-axial fluid collection is seen. No skull fracture is noted. Impression: Negative study.
[2017-10-01 11:00] VITALS: BP 130/80
[2017-10-01 15:00] VITALS: BP 133/77
--- NOTE | 2017-10-01 19:05 | PDOC ---
SURGICAL PROGRESS NOTE Subjective Pt. 2 wks s/p LAVH, BSO and Anterior Repair presented with abd pain. CT scan and clinical evaluation appears to be vaginal cuff seroma from surgical changes. Pt. reports possible anaphylaxis to either contrast dye or antibiotic. She had been taking miralax daily for constipation. Counseled against miralax. Recommend prune juice, apple juice, metamucil, increase dietary fiber, water and stool softener for constipation. Pt. is ambulating and feeling much better today since taking prednisone taper. Awaiting echocardiogram results. Vital Signs Vital Signs Date Time Temp Pulse Resp B/P (MAP) Pulse Ox O2 Delivery O2 Flow Rate FiO2 10/01/17 15:00 98.0 81 19 133/77 (95) 97 Room Air 98.0 I&O Intake and Output 10/01/17 07:00 Intake Total 2557 ml Balance 2557 ml Intake Oral 2557 ml # Voids 4 # Bowel Movements 1 PATIENT HAS A VELASQUEZ: No General: Alert, Oriented X3, Cooperative HEENT: Atraumatic Lungs: Clear to auscultation Heart: Regular rate Abdomen: Normal bowel sounds, Soft, No tenderness, No masses Extremities: No edema Neuro: Normal gait Psych/Mental Status: Mental status NL Problem List Problems Medical Problems: (1) Post op infection Status: Acute Assessment/Plan A: Constipation Allergic reaction to contrast dye? P: Awaiting echocardiogram. Repeat CBC and BMP. Anticipate d/c home tomorrow if all normal. Problems: ELBA DONALD Jr, MD Oct 01, 2017 19:05
--- NOTE | 2017-10-01 19:26 | PDOC ---
PROGRESS NOTES Subjective Subjective Patient feels much better today. The echocardiogram was done and it is normal. Normal left ventricular function and no evidence of a mitral valve prolapse Objective Objective Vital Signs Date Time Temp Pulse Resp B/P (MAP) Pulse Ox O2 Delivery O2 Flow Rate FiO2 10/01/17 15:00 98.0 81 19 133/77 (95) 97 Room Air 98.0 Intake and Output 10/01/17 07:00 Intake Total 2557 ml Balance 2557 ml Intake Oral 2557 ml # Voids 4 # Bowel Movements 1 Physical Exam Physical Exam No changes in cardiac exam patient is in sinus rhythm Assessment Assessment Patient appears to be compensated cardiac-byrd. No apparent tachycardia today. If she is stable may go home in a.m. Problems Medical Problems: (1) Post op infection Status: Acute Comment Review of Relevant I have reviewed the following items sera (where applicable) has been applied. Medications Current Medications Sodium Chloride 1,000 ml @ 1,000 mls/hr Q1H IV Last administered on 12:36; Start 09/28/17 at 12:36; Stop 09/28/17 at 13:35; Status DC Iohexol (Omnipaque 300 Mg/ml) 75 ml 1X ONCE IV Last administered on 13:46; Start 09/28/17 at 13:00; Stop 09/29/17 at 10:37; Status DC Info (Do NOT chart on this entry -- for MONITORING) 1 each PRN DAILY PRN MC SEE COMMENTS; Start 09/28/17 at 13:00; Stop 09/29/17 at 10:37; Status DC Piperacillin Sod/ Tazobactam Sod 4.5 gm/Dextrose 100 ml @ 200 mls/hr 1X ONCE IV ; Start 09/28/17 at 15:15; Stop 09/28/17 at 15:15; Status DC Ketorolac Tromethamine (Toradol) 30 mg 1X ONCE IV Last administered on 15:23; Start 09/28/17 at 15:15; Stop 09/29/17 at 10:37; Status DC Piperacillin Sod/ Tazobactam Sod (Zosyn) 4.5 gm 1X ONCE IVP Last administered on 09/28/17 15:52; Start 09/28/17 at 15:15; Stop 09/29/17 at 10:37; Status DC Al Hydroxide/Mg Hydroxide (Mylanta Plus Xs) 30 ml PRN Q3HRS PRN PO HEARTBURN / GAS; Start 09/28/17 at 17:45 Diphenhydramine HCl (Benadryl) 25 mg PRN Q6HRS PRN PO ITCHING Last administered on 09/30/17 19:39; Start 09/28/17 at 17:45 Sodium Chloride (Normal Saline Flush) 3 ml QSHIFT PRN IV AFTER MEDS AND BLOOD DRAWS; Start 09/28/17 at 17:45 Oxycodone/ Acetaminophen (Percocet 5/325) 1 tab PRN Q4HRS PRN PO MILD PAIN, 1ST CHOICE Last administered on 09/28/17 19:23; Start 09/28/17 at 17:45 Oxycodone/ Acetaminophen (Percocet 5/325) 2 tab PRN Q4HRS PRN PO MODERATE PAIN , SEVERE PAIN; Start 09/28/17 at 17:45 Morphine Sulfate 2 mg PRN Q1HR PRN IV PAIN; Start 09/28/17 at 17:45 Ondansetron HCl (Zofran) 4 mg PRN Q6HRS PRN IV NAUESA, 1ST CHOICE; Start 09/28 at 17:45 Metoclopramide HCl (Reglan Vial) 10 mg PRN Q6HRS PRN IV Nausea/Vomiting, 1st Choice; Start 09/28/17 at 17:45 Cefazolin Sodium 1 gm/Dextrose 50 ml @ 100 mls/hr Q6H IV ; Start 09/28/17 at 17:45; Stop 09/29/17 at 06:14; Status UNV Ketorolac Tromethamine (Toradol) 30 mg Q6HRS IV ; Start 09/28/17 at 18:00; Stop 10/03/17 at 17:59 Linaclotide (Linzess) 145 mcg DAILY07 PO Last administered on 10/01/17 06:32 ; Start 09/29/17 at 07:00 Zolpidem Tartrate (Ambien) 5 mg PRN QHS PRN PO INSOMNIA; Start 09/28/17 at 18: 30 Diphenhydramine HCl (Benadryl) 50 mg STK-MED ONCE .ROUTE ; Start 09/28/17 at 20 :14; Stop 09/28/17 at 20:15; Status DC Diphenhydramine HCl (Benadryl) 50 mg 1X ONCE IM ; Start 09/28/17 at 20:45; Stop 09/29/17 at 10:37; Status DC Piperacillin Sod/ Tazobactam Sod 4.5 gm/Dextrose 100 ml @ 200 mls/hr Q6HRS IV ; Start 09/29/17 at 00:00; Status UNV Piperacillin Sod/ Tazobactam Sod (Zosyn) 4.5 gm Q6HRS IVP ; Start 09/28/17 at 22:00; Stop 09/29/17 at 10:37; Status DC Methylprednisolone Sodium Succinate (SOLU-Medrol 125MG VIAL) 125 mg 1X ONCE IV Last administered on 09/28/17 21:32; Start 09/28/17 at 21:15; Stop at 10:37; Status DC Famotidine (Pepcid Vial) 20 mg 1X ONCE IVP Last administered on 09/28/17 21: 32; Start 09/28/17 at 21:15; Stop 09/28/17 at 21:16; Status DC Levothyroxine Sodium (Synthroid) 88 mcg 1X ONCE PO Last administered on 10:50; Start 09/28/17 at 21:15; Stop 09/28/17 at 21:16; Status DC Diazepam (Valium) 5 mg 1X ONCE PO Last administered on 09/28/17 21:30; Start 09/28/17 at 21:15; Stop 09/29/17 at 10:37; Status DC Diazepam (Valium) 10 mg 1X ONCE PO Last administered on 09/28/17 22:37; Start 09/28/17 at 21:30; Stop 09/29/17 at 10:37; Status DC Diazepam (Valium) 10 mg 1X ONCE PO Last administered on 09/29/17 09:10; Start 09/29/17 at 09:15; Stop 09/29/17 at 10:37; Status DC Diazepam (Valium) 10 mg PRN Q6HRS PRN PO ANXIETY Last administered on 08:37; Start 09/29/17 at 10:00 Diphenhydramine HCl (Benadryl) 50 mg 1X ONCE PO Last administered on 09:16; Start 09/30/17 at 09:00; Stop 09/30/17 at 09:01; Status DC Bupropion HCl (Wellbutrin Xl) 300 mg DAILY PO Last administered on 10/01/17 08:37; Start 09/30/17 at 15:00 Prednisone (Prednisone) 20 mg BID PO Last administered on 10/01/17 08:36; Start 09/30/17 at 15:00 Ibuprofen (Motrin) 800 mg PRN Q6HRS PRN PO INFLAMMATION Last administered on 17:52; Start 09/30/17 at 16:15 Diphenhydramine HCl (Benadryl) 50 mg STK-MED ONCE .ROUTE ; Start 09/28/17 at 20 :00; Stop 10/01/17 at 13:31; Status DC Active Scripts Active Percocet 5-325 Mg Tablet (Oxycodone/Acetaminophen) 1 Each Tablet 1 Tab PO PRN Q6HRS PRN Ibuprofen 800 Mg Tablet 800 Mg PO PRN Q6HRS PRN Colace (Docusate Sodium) 100 Mg Capsule 100 Mg PO BID Reported Levothyroxine Sodium 75 Mcg Tablet 75 Mcg PO DAILYAC Wellbutrin Xl (Bupropion Hcl) 300 Mg Tab.er.24h 300 Mg PO DAILY Vitals/I & O Vital Sign - Last 24 Hours 09/30/17 09/30/17 09/30/17 10/01/17 19:30 19:55 23:55 03:55 Temp 98.2 97.9 98.2 97.9 Pulse 88 62 62 Resp B/P (MAP) 118/50 (72) 121/49 (73) Pulse Ox 98 98 O2 Delivery Room Air Room Air Room Air 10/01/17 10/01/17 10/01/17 10/01/17 07:00 08:00 11:00 15:00 Temp 98.2 98.1 98.0 98.2 98.1 98.0 Pulse 71 83 81 Resp 19 19 19 B/P (MAP) 127/78 (94) 130/80 (97) 133/77 (95) Pulse Ox 96 98 97 O2 Delivery Room Air Room Air Room Air Room Air Intake and Output 09/30/17 09/30/17 10/01/17 15:00 23:00 07:00 Intake Total 2557 ml Balance 2557 ml VICKIE DENNY MD Oct 01, 2017 19:26
[2017-10-01 19:35] VITALS: BP 129/73
--- NOTE | 2017-10-01 19:40 | CARD ---
APPROVED REPORT EXAM: Two-dimensional and M-mode echocardiogram with Doppler and color Doppler. Other Information Quality : Good INDICATION Palpitations 2D DIMENSIONS RVDd2.6 (2.9-3.5cm)Left Atrium(2D)3.7 (1.6-4.0cm) IVSd0.9 (0.7-1.1cm)Aortic Root(2D)2.9 (2.0-3.7cm) LVDd5.6 (3.9-5.9cm)LVOT Diameter2.2 (1.8-2.4cm) PWd0.9 (0.7-1.1cm)LVDs2.1 (2.5-4.0cm) FS (%) 30.0 %SV136.9 ml LVEF(%)70.0 (>50%) Aortic Valve AoV Peak Feliz.188.2cm/sAoV VTI38.3cm AO Peak GR.14.2mmHgLVOT Peak Feliz.142.5cm/s LVOT VTI 30.36cmAO Mean GR.8mmHg ARIEL (VMAX)2.31la8SEO (VTI)2.96cm2 Mitral Valve MV E Pjtzkbma57.3cm/sMV DECEL LOXT057jq MV A Bszwovqw684.1cm/sMV WYL27ok E/A Ratio0.8MVA (PHT)3.97cm2 TDI E/Lateral E'11.9E/Medial E'12.2 Tricuspid Valve TR P. Qbargulp619hn/sRAP FBGVVRAM9juPx TR Peak Gr.04bcZjYAOT05nmWj Pulmonary Vein S1 Sracohrr89.5cm/sD2 Telkvboe41.1cm/s PVa zlyzsvkt151wvsa LEFT VENTRICLE The left ventricle is normal size. There is normal left ventricular wall thickness. The left ventricu lar systolic function is normal and the ejection fraction is within normal range. The Ejection Fracti on is 70%. There is normal LV segmental wall motion. Transmitral Doppler flow pattern is Grade I-abno rmal relaxation pattern. RIGHT VENTRICLE The right ventricle is normal size. The right ventricular systolic function is normal. ATRIA The left atrium size is normal. The right atrium size is normal. The interatrial septum is intact wit h no evidence for an atrial septal defect or patent foramen ovale as noted on 2-D or Doppler imaging. AORTIC VALVE The aortic valve is normal in structure and function. Doppler and Color Flow revealed no significant aortic regurgitation. There is no significant aortic valvular stenosis. MITRAL VALVE The mitral valve is normal in structure and function. There is no evidence of mitral valve prolapse. There is no mitral valve stenosis. Doppler and Color-flow revealed no mitral regurgitation. TRICUSPID VALVE The tricuspid valve is normal in structure Doppler and Color Flow revealed physiological tricuspid re gurgitation. The PA pressure was estimated at 23 mmHg. There is no tricuspid valve stenosis. PULMONIC VALVE The pulmonary valve is normal in structure and function. Doppler and Color Flow revealed no pulmonic valvular regurgitation. There is no pulmonic valvular stenosis. GREAT VESSELS The aortic root is normal in size. The ascending aorta is normal in size. The IVC is normal in size a nd collapses >50% with inspiration. PERICARDIAL EFFUSION There is no evidence of significant pericardial effusion. Critical Notification Critical Value: No <Conclusion> The left ventricular systolic function is normal and the ejection fraction is within normal range. The Ejection Fraction is 70%. Transmitral Doppler flow pattern is Grade I-abnormal relaxation pattern. The left atrium size is normal. The right atrium size is normal. The aortic valve is normal in structure and function. The mitral valve is normal in structure and function. Doppler and Color Flow revealed physiological tricuspid regurgitation. The PA pressure was estimated at 23 mmHg. The pulmonary valve is normal in structure and function. There is no evidence of significant pericardial effusion.
[2017-10-01] MEDS: IBUPROFEN 800 MG TABLET. PO PRN (21:40)
[2017-10-01 22:49] VITALS: BP 115/66
[2017-10-02] MEDS: LINACLOTIDE 145 MCG CAPSULE. PO SCH (06:13)
[2017-10-02 07:00] VITALS: BP 140/83
[2017-10-02 08:24] LABS: BASO # 0.1 x10^3/uL (0.0-0.2); BASO % 1 % (0-3); EOS % 0 % (0-3); HEMATOCRIT 39.4 % (36.0-47.0); LYMPH # 1.6 x10^3/uL (1.0-4.8); LYMPH % 16 % (24-48); MEAN CORPUSCULAR HEMOGLOBIN 29 pg (25-35); MEAN CORPUSCULAR HGB CONC 33 g/dL (31-37); MEAN CORPUSCULAR VOLUME 88 fL (79-100); MONO % 6 % (0-9); NEUT % 78 % (31-73); PLATELET COUNT 335 x10^3/uL (140-400); RED CELL DISTRIBUTION WIDTH 14.1 % (11.5-14.5); WHITE BLOOD COUNT 9.8 x10^3/uL (4.0-11.0)
[2017-10-02 08:39] LABS: CALCIUM 8.7 mg/dL (8.5-10.1); CREATININE 0.9 mg/dL (0.6-1.0); GFR 66.8; POTASSIUM 4.3 mmol/L (3.5-5.1)
[2017-10-02] MEDS: predniSONE 20 MG TABLET PO SCH (08:45)
[2017-10-02] MEDS: buPROPion XL 150 MG TAB.ER.24H. PO SCH (08:45)
[2017-10-02 11:00] VITALS: BP 128/60
[2017-10-02] MEDS: KETOROLAC 30 MG/ML INJ. IV SCH (11:29)
--- NOTE | 2017-10-02 13:30 | PDOC ---
SURGICAL PROGRESS NOTE Subjective Pt. feeling well. No complaints. Vital Signs Vital Signs Date Time Temp Pulse Resp B/P (MAP) Pulse Ox O2 Delivery O2 Flow Rate FiO2 10/02/17 07:51 Room Air 10/02/17 07:00 98.1 76 20 140/83 (102) 98 98.1 I&O Intake and Output 10/02/17 06:59 Intake Total 250 ml Balance 250 ml Intake Oral 250 ml # Voids 1 PATIENT HAS A VELASQUEZ: No General: Alert, Oriented X3, Cooperative HEENT: Atraumatic Lungs: Clear to auscultation Heart: Regular rate Abdomen: Normal bowel sounds, Soft Extremities: No clubbing Psych/Mental Status: Mental status NL Labs Laboratory Tests Test 10/02/17 08:15 White Blood Count 9.8 x10^3/uL (4.0-11.0) Red Blood Count 4.50 x10^6/uL (3.50-5.40) Hemoglobin 13.0 g/dL (12.0-15.5) Hematocrit 39.4 % (36.0-47.0) Mean Corpuscular Volume 88 fL (79-100) Mean Corpuscular Hemoglobin 29 pg (25-35) Mean Corpuscular Hemoglobin Concent 33 g/dL (31-37) Red Cell Distribution Width 14.1 % (11.5-14.5) Platelet Count 335 x10^3/uL (140-400) Neutrophils (%) (Auto) 78 % (31-73) Lymphocytes (%) (Auto) 16 % (24-48) Monocytes (%) (Auto) 6 % (0-9) Eosinophils (%) (Auto) 0 % (0-3) Basophils (%) (Auto) 1 % (0-3) Neutrophils # (Auto) 7.6 x10^3uL (1.8-7.7) Lymphocytes # (Auto) 1.6 x10^3/uL (1.0-4.8) Monocytes # (Auto) 0.5 x10^3/uL (0.0-1.1) Eosinophils # (Auto) 0.0 x10^3/uL (0.0-0.7) Basophils # (Auto) 0.1 x10^3/uL (0.0-0.2) Sodium Level 142 mmol/L (136-145) Potassium Level 4.3 mmol/L (3.5-5.1) Chloride Level 105 mmol/L (98-107) Carbon Dioxide Level 25 mmol/L (21-32) Anion Gap 12 (6-14) Blood Urea Nitrogen 12 mg/dL (7-20) Creatinine 0.9 mg/dL (0.6-1.0) Estimated GFR (Cockcroft-Gault) 66.8 Glucose Level 124 mg/dL (70-99) Calcium Level 8.7 mg/dL (8.5-10.1) Laboratory Tests Test 10/02/17 08:15 White Blood Count 9.8 x10^3/uL (4.0-11.0) Red Blood Count 4.50 x10^6/uL (3.50-5.40) Hemoglobin 13.0 g/dL (12.0-15.5) Hematocrit 39.4 % (36.0-47.0) Mean Corpuscular Volume 88 fL (79-100) Mean Corpuscular Hemoglobin 29 pg (25-35) Mean Corpuscular Hemoglobin Concent 33 g/dL (31-37) Red Cell Distribution Width 14.1 % (11.5-14.5) Platelet Count 335 x10^3/uL (140-400) Neutrophils (%) (Auto) 78 % (31-73) Lymphocytes (%) (Auto) 16 % (24-48) Monocytes (%) (Auto) 6 % (0-9) Eosinophils (%) (Auto) 0 % (0-3) Basophils (%) (Auto) 1 % (0-3) Neutrophils # (Auto) 7.6 x10^3uL (1.8-7.7) Lymphocytes # (Auto) 1.6 x10^3/uL (1.0-4.8) Monocytes # (Auto) 0.5 x10^3/uL (0.0-1.1) Eosinophils # (Auto) 0.0 x10^3/uL (0.0-0.7) Basophils # (Auto) 0.1 x10^3/uL (0.0-0.2) Sodium Level 142 mmol/L (136-145) Potassium Level 4.3 mmol/L (3.5-5.1) Chloride Level 105 mmol/L (98-107) Carbon Dioxide Level 25 mmol/L (21-32) Anion Gap 12 (6-14) Blood Urea Nitrogen 12 mg/dL (7-20) Creatinine 0.9 mg/dL (0.6-1.0) Estimated GFR (Cockcroft-Gault) 66.8 Glucose Level 124 mg/dL (70-99) Calcium Level 8.7 mg/dL (8.5-10.1) Problem List Problems Medical Problems: (1) Post op infection Status: Acute Assessment/Plan A: Constipation Vaginal cuff seroma P: D/c home. F/u in 3 wks. Problems: ELBA DONALD Jr, MD Oct 02, 2017 13:29
--- NOTE | 2017-10-02 13:30 | DISCH ---
DISCHARGE INSTRUCTIONS Condition on Discharge Condition on Discharge: Stable Activity After Discharge Activity Instructions for Disc: Activity as tolerated Lifting Instructions after Dis: No heavy lifting Driving Instructions after Dis: Do not drive today Diet after Discharge Diet after Discharge: Regular Contacting the DRTabitha after DC Call your doctor for: Concerns you may have Follow-Up Follow up with: Dr. Serrano in 3 weeks. ELBA SERRANO Jr, MD Oct 02, 2017 13:30
== END 2017-10-02 14:00 | disposition home or self-care (01) | DRG 863 ==
LOC: ER 11:46 → 3 NORTH 16:16 → 2 NORTH 09-29 17:48
PROVIDERS: ADMIT Specialist; ATTEND Specialist
DX: T81.4XXA Infection following a procedure, initial encounter (principal); E03.9 Hypothyroidism, unspecified; F32.9 Major depressive disorder, single episode, unspecified; F41.9 Anxiety disorder, unspecified; K59.00 Constipation, unspecified; Z90.710 Acquired absence of both cervix and uterus; F41.0 Panic disorder [episodic paroxysmal anxiety]; N89.8 Other specified noninflammatory disorders of vagina
CPT/HCPCS: 36415; 70450; 74177; 76536; 80048; 80053; 81001; 82962; 83001; 83002; 83690; 84439; 84443; 84481; 85007; 85025; 85651; 86038; 93306; 96361; 96374; 96375; J1200; J1885; J2543; J2930; J7030; J7512; Q0163; Q9967; S0028; 99285-25

== ENCOUNTER → 2018-04-29 | Outpatient (CLI) | payer OTHER ==
[2018-04-29 11:38] LABS: THYROID STIM HORMONE (TSH) 1.505 uIU/mL (0.358-3.74)
[2018-04-30 02:24] LABS: DHEA SO4 126.8 ug/dL (41.2-243.7)
[2018-04-30 02:24] LABS: ESTRADIOL LEVEL 80.5 pg/mL (.); PROGESTERONE 2.2 ng/mL (.); TESTOSTERONE TOTAL 45 ng/dL (8-48)
== END | disposition home or self-care (01) ==
LOC: LAB 10:10
DX: N95.1 Menopausal and female climacteric states (principal); R68.82 Decreased libido
CPT/HCPCS: 36415; 82627; 82670; 83001; 84144; 84403; 84443

== ENCOUNTER 2019-04-04 14:03 | Emergency (ER) | payer OTHER ==
[~2019-04-04] VITALS: Ht 170.2 cm; Wt 122.5 kg
[~2019-04-04 14:03] MED LIST changes: -OXYC-323 PO; +OXYC1TAB15 PO
--- NOTE | 2019-04-04 14:28 | PHYS DOC ---
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 After she took the Bactrim she got hives and immediately called paramedics who came and gave the patient Benadryl. Since getting the Benadryl the patient's significantly improving. She denies any pain but does have a fullness in the ear and generalized rhinorrhea and feels mildly malaised. Review of systems is negative for chest pain shortness of breath abdominal pain difficult to breathing or stridor. All other review of systems is negative. ED course 48-year-old female presenting with an allergic reaction and his significant improving after Benadryl given by paramedics. On arrival she is asymptomatic. We monitored her here in the emergency department and then discharged her to follow-up with her doctor in a few days.The patient has been examined and was not found to have an emergency medical condition. The patient was then discharged home in stable condition to follow up with their primary care physician over the next 1-2 days. They were to return if their symptoms worsened or if they were concerned for any reason. They were also instructed to return to the emergency department if they were unable to get the recommended and appropriate follow-up. [id number] discharge instructions and return precautions were given. Patient's questions were answered to their satisfaction. Patient is comfortable with plan. Allergies Allergies Allergies Coded Allergies Type Severity Reaction Last Updated Verified iohexol Allergy Severe DIFFICULTY BREATHING/THROAT TIGHTENING (09/28/17 ADMIT) 10/02/17 Yes Sulfa (Sulfonamide Antibiotics) Allergy Intermediate HIVES 04/04/19 Yes Physical Exam Physical Exam Constitutional: Well developed, well nourished, no acute distress, non-toxic appearance. [] HENT: Normocephalic, atraumatic, bilateral external ears normal, oropharynx moist, no oral exudates, nose normal. [] Eyes: PERRLA, EOMI, conjunctiva normal, no discharge. [] Neck: Normal range of motion, no tenderness, supple, no stridor. [] Cardiovascular:Heart rate regular rhythm, no murmur [] Lungs & Thorax: Bilateral breath sounds clear to auscultation [] Abdomen: Bowel sounds normal, soft, no tenderness, no masses, no pulsatile masses. [] Skin: Warm, dry, no erythema, no rash. [] Back: No tenderness, no CVA tenderness. [] Extremities: No tenderness, no cyanosis, no clubbing, ROM intact, no edema. [] Neurologic: Alert and oriented X 3, normal motor function, normal sensory function, no focal deficits noted. [] Psychologic: Affect normal, judgement normal, mood normal. [] Current Patient Data Vital Signs Vital Signs Date Time Temp Pulse Resp B/P (MAP) Pulse Ox O2 Delivery O2 Flow Rate FiO2 04/04/19 14:03 97.8 81 24 162/74 (103) 98 Room Air 97.8 EKG EKG [] Radiology/Procedures Radiology/Procedures [] Course & Med Decision Making Course & Med Decision Making Pertinent Labs and Imaging studies reviewed. (See chart for details) [] Dragon Disclaimer Dragon Disclaimer This electronic medical record was generated, in whole or in part, using a voice recognition dictation system. Departure Departure Impression: Primary Impression: Allergic reaction Disposition: 01 HOME, SELF-CARE Condition: STABLE Referrals: SANDRA NOLASCO MD (PCP) Patient Instructions: Hives, [id number] Additional Instructions: Thank you for allowing us to participate in your care today. Return to the emergency department you have any new or worsening symptoms, or if you are concerned for any reason. Return to emergency department if you have any new or concerning symptoms including but not limited to fever, chills, nausea, vomiting, intractable pain, any new rashes, chest pain, shortness of air, uncontrolled bleeding, difficulty breathing, and/or vision loss. Follow up with your primary care physician within 1-2 days. Call your Primary Doctor tomorrow and inform them of your visit today. If you do not have a primary care provider we are happy to provide you with a list of our primary care providers contact information. This condition should be evaluated by your primary care physician and any recommended consulting services for continued management within 2 days after discharge. If at any time, you are having difficulty getting into your primary care doctor or a specialist, return to the emergency department. LUIS TITUS MD Apr 04, 2019 14:28
[2019-04-04 14:38] VITALS: BP 165/78
== END 2019-04-04 15:09 | disposition home or self-care (01) ==
LOC: ER 14:03
DX: T78.40XA Allergy, unspecified, initial encounter (principal); J34.89 Other specified disorders of nose and nasal sinuses; Z88.8 Allergy status to other drugs, medicaments and biological substances; Z88.2 Allergy status to sulfonamides
CPT/HCPCS: 99284

== ENCOUNTER → 2019-07-29 | Outpatient (CLI) | payer OTHER ==
--- NOTE | 2019-07-30 13:14 | KCIC ---
BILATERAL SCREENING MAMMOGRAM, 3-D History: Routine screening. Comparison: Bilateral mammogram June 08, 2017. Technique: MLO and CC digital tomosynthesis (3D) images obtained. Radiologist reviewed these images on dedicated workstation. Findings: Breast Tissue Density B : There are scattered areas of fibroglandular density. There are no dominant masses, suspicious microcalcifications, or architectural distortion. IMPRESSION: No mammographic evidence of malignancy. Recommend routine screening. BI-RADS category 1: Negative. The images were reviewed with computer-aided detection. Patient information is entered into reminder system with a target due date for the next screening mammogram. Mammography is the most sensitive method for finding small breast cancers, but it does not detect them all and is not a substitute for careful clinical examination. A negative mammogram does not negate a clinically suspicious finding and should not result in delay in biopsying a clinically suspicious abnormality. "Our facility is accredited by the [employer] Mammography Program." Electronically signed by: Otis Lomeli MD (07/30/2019 1:11 PM) [id number]
== END | disposition home or self-care (01) ==
LOC: KCIC MAMMO 15:32
PROVIDERS: ATTEND Obstetrics & Gynecology
DX: Z12.31 Encounter for screening mammogram for malignant neoplasm of breast (principal)
CPT/HCPCS: 77063; 77067